=== PATIENT | female | born 1935 | race Caucasian/White ===

== ENCOUNTER → 2018-04-12 | Outpatient (CLI) | payer MEDICARE, OTHER ==
--- NOTE | 2018-04-12 15:39 | RAD ---
Bilateral lower extremity arterial ultrasound History: Claudication worse of the left leg, history of hypertension, previous smoker Findings: Multiple grayscale, color, and duplex spectral analysis sonographic images were acquired of the lower extremity arteries bilaterally. There are no previous similar exams. There is moderate to severe scattered plaque bilaterally. There is velocity elevation of the left common femoral artery and proximal superficial femoral artery suggestive of underlying greater degree of stenoses. There are mostly biphasic waveforms bilaterally other than monophasic waveform of the left profunda femoris artery. Velocities in cm/sec: RIGHT Common femoral artery up to 388 Profunda femoris artery 99 Proximal SFA 164 Mid SFA 138 Distal SFA 108 Popliteal artery 95 Peroneal artery 55 Dorsalis pedis artery 93 Posterior tibial artery 39 Anterior tibial artery 76 LEFT: Common femoral artery 190 Profunda femoris artery 42 Proximal SFA up to 282 Mid SFA 75 Distal SFA 53 Popliteal artery 41 Peroneal artery 28 Dorsalis pedis artery 32 Posterior tibial artery 23 Anterior tibial artery 41 Impression: 1. There is diffuse plaque. There is greater degree of velocity elevation left common femoral artery and the proximal superficial femoral artery suggestive of underlying stenoses. Electronically signed by: Yan Hilliard MD (04/12/2018 3:35 PM) [id number]
== END | disposition home or self-care (01) ==
LOC: US 09:59
PROVIDERS: ATTEND Physician Assistant Medical
DX: I70.293 Other atherosclerosis of native arteries of extremities, bilateral legs (principal); I10 Essential (primary) hypertension; Z87.891 Personal history of nicotine dependence
CPT/HCPCS: 93925

== ENCOUNTER → 2018-05-04 | Outpatient (CLI) | payer MEDICARE, OTHER ==
--- NOTE | 2018-05-04 16:02 | RAD ---
MR#: [id number] Date of Study: 05/04/2018 Ordering Physician: MARILYNN PARK, Referring Physician: MARILYNN PARK, Tech: Stephany Allen RDMS, RVT, RTR APPROVED REPORT Patient Location: OUT-PATIENT Indications Rest Pain: Grayscale images of the right common femoral artery revealed moderate diffuse calcified plaque. Spect ral waveforms are noted to be monophasic with peak systolic velocities of 316 cm/s which is twice her previous arterial duplex value of 150 cm/s. Blunted waveforms are noted in the SFA and below-knee ve ssels. There are mostly monophasic waveforms suggestive of more proximal disease with diminished velo cities throughout the popliteal and lower extremity arterial tree. Critical Notification Critical Value: No <Conclusion> 1. Probable right [employer] greater than 50% stenosis with monophasic waveforms in the right lower extremit y and diminished velocities compared to arterial duplex dated 04/12/2018. Signed by : Usama Moya, Electronically Approved : 05/04/2018 16:01:17
--- NOTE | 2018-05-04 16:03 | RAD ---
MR#: [id number] Date of Study: 05/04/2018 Ordering Physician: MARILYNN PARK, Referring Physician: MARILYNN PARK, Tech: Stephany Allen RDMS, RVT, RTR APPROVED REPORT Patient Location : OUT-PATIENT Indications Varicose Veins Grayscale images of the bilateral greater and lesser saphenous veins on limited images do not show an y evidence of thrombus. Spectral waveforms and color Doppler do not reveal any significant evidence o f reflux. Critical Notification Critical Value: No <Conclusion> Negative for reflux in the bilateral greater and lesser saphenous veins Signed by : Usama Moya, Electronically Approved : 05/04/2018 16:02:50
== END | disposition home or self-care (01) ==
LOC: US 12:14
PROVIDERS: ATTEND Internal Medicine Cardiovascular Disease
DX: I70.291 Other atherosclerosis of native arteries of extremities, right leg (principal); I10 Essential (primary) hypertension; Z87.891 Personal history of nicotine dependence
CPT/HCPCS: 93926; 93970

== ENCOUNTER 2018-05-25 11:13 | Inpatient (IN) | payer MEDICARE, OTHER ==
[~2018-05-25] VITALS: Ht 149.9 cm; Wt 47.4 kg
[2018-05-25] MEDS ORDERED: IV NORMAL SALINE 1,000ML 1,000 ML IV SCH (11:26)
--- NOTE | 2018-05-25 11:38 | PHYS DOC ---
Past History Past Medical History: High Cholesterol, Hypertension, Hypothyroid Additional Past Medical Histor: PVD Past Surgical History: Angioplasty Smoking: Non-smoker Adult General Chief Complaint Chief Complaint: MULTIPLE COMPLAINTS HPI HPI Patient is an 82-year-old female who presents to the emergency department for evaluation. She has a history of peripheral vascular disease, and last month underwent 2 separate procedures where she had angioplasty, without stenting, of her lower extremities. She also reports that she underwent a diagnostic coronary angiogram without intervention. She did develop complications from bleeding at the site of her right wrist, and was in the hospital for a few days. She spent a total of 7 days in the hospital. She was also started on Norvasc for hypertension, but developed a red rash to the medication and wound up back in the hospital again. This medication was stopped and she was treated with medications for a possible allergic reaction. She was treated with Solu- Medrol in the hospital and has been on a steroid taper for the past week, and was supposed end today but she did not take her dose today. The patient presents to the emergency department today for generalized weakness and fatigue. Her daughter states that she has lost about 7 pounds over the past week , although she has been eating. She has had some intermittent flank pain bilaterally, more on the left side recently. She denies any back pain at the current time. She has not had any abdominal pain. She denies any dizziness or lightheadedness, or headache. She has had some occasional blurred vision at times but reports her vision is normal now. The patient's daughter states that she was too weak to get into bed this morning and fell face first into her bed to try and get into bed. The patient is able to move all extremities and is oriented to person place and time at this point. She has not had any black or bloody stools. She is not on any new anticoagulants. There are no alleviating, or exacerbating factors to her symptoms. Review of Systems Review of Systems Constitutional: Denies fever or chills [] Eyes: Denies ocular discharge, current vision changes, redness, or eye pain [] HENT: Denies nasal congestion or sore throat [] Respiratory: Denies cough or shortness of breath [] Cardiovascular: The patient denies any shortness of breath, chest pain, palpitations, or orthopnea [] GI: Denies abdominal pain, nausea, vomiting, bloody stools or diarrhea [] : Denies dysuria or hematuria [] Musculoskeletal: Patient has had some left flank/back pain Denies myalgias or joint pain [] Integument: Denies rash or skin lesions [] Neurologic: Denies headache, focal weakness or sensory changes [] Endocrine: Denies polyuria or polydipsia [] All other systems were reviewed and found to be within normal limits, except as documented in this note. Current Medications Current Medications Current Medications Medications (Trade) Dose Ordered Sig/Aylin Start Time Stop Time Status Last Admin Dose Admin Sodium Chloride 1,000 ml @ 1,000 mls/hr Q1H 05/25/18 11:26 05/25/18 12:25 UNV Physical Exam Physical Exam PHYSICAL EXAM: CONSTITUTIONAL: Well developed, well nourished HEAD: normocephalic, atraumatic EENT: PERRL, EOMI. Conjunctivae appear mildly pale, sclerae non-icteric; mildly dry mucous membranes. NECK: Supple, non-tender; no meningismus. LUNGS: Lungs CTA, breathing even and unlabored. Normal air movement. HEART: Regular tachycardia, no murmur CHEST: No deformity; non-tender ABDOMEN: The abdomen is soft, and non-tender, no masses or bruits. EXTREM: Normal ROM; no deformity, no calf tenderness. Normal pulses palpable in all extremities. There is no pedal edema. SKIN: No rash; no diaphoresis NEURO: Alert; normal speech and cognition; CN's grossly intact; strength grossly intact without focal deficit. BACK: There is mild bilateral CVA TTP.There is no bony tenderness to palpation of the thoracic or lumbar spine. EKG EKG [Normal sinus rhythm at a rate of 102 beats for minute, right axis deviation, nonspecific intraventricular conduction delay, poor anterior R-wave progression without acute ischemic ST/T changes.] Radiology/Procedures Radiology/Procedures [PROCEDURE: CT HEAD WO CONTRAST CT HEAD INDICATION: WEAKNESS, altered mental status COMPARISON: None Available. TECHNIQUE: 5 mm contiguous axial images were obtained from the skull base to the vertex in both bone and soft tissue algorithm. Exposure: One or more of the following individualized dose reduction techniques were utilized for this examination: 1. Automated exposure control 2. Adjustment of the mA and/or kV according to patient size 3. Use of iterative reconstruction technique FINDINGS: Mild bilateral periventricular white matter hypodensities likely chronic small vessel ischemic disease. No evidence of acute intracranial hemorrhage. No extra-axial fluid collections. Calcifications identified in the basal ganglia. No mass effect or midline shift. Ventricular size is appropriate. Basal cisterns are patent. No fractures identified.Garcia-white differentiation is preserved.Globes and orbits are within normal limits. Paranasal sinuses and mastoid air cells are clear. IMPRESSION: No acute intracranial findings. ] PROCEDURE: PORTABLE CHEST 1V EXAM: Chest, single view. HISTORY: Weakness. COMPARISON: None. FINDINGS: A frontal view of the chest is obtained. There is no infiltrate, pleural effusion or pneumothorax. The heart is normal in size. IMPRESSION: No acute pulmonary finding. Course & Med Decision Making Course & Med Decision Making Pertinent Labs and Imaging studies reviewed. (See chart for details) [The patient's condition remained stable. Her renal function has worsened slightly since hospital discharge, when it was 1.0, it is 1.4 today. Her sodium was also dropped from 131-129. I discussed the case with the hospitalist, who will admit the patient further evaluation and monitoring, and rehydration. ] Dragon Disclaimer Dragon Disclaimer This electronic medical record was generated, in whole or in part, using a voice recognition dictation system. Departure Departure: Impression: Primary Impression: Dehydration Additional Impressions: Weakness Renal insufficiency Hyponatremia Disposition: ADMITTED INPATIENT Admitting Physician: Other (Marciano) Condition: STABLE Referrals: ALENA HANEY (PCP) Problem Qualifiers HUBERT WANG MD May 25, 2018 11:38
--- NOTE | 2018-05-25 11:57 | RAD ---
CT HEAD INDICATION: WEAKNESS, altered mental status COMPARISON: None Available. TECHNIQUE: 5 mm contiguous axial images were obtained from the skull base to the vertex in both bone and soft tissue algorithm. Exposure: One or more of the following individualized dose reduction techniques were utilized for this examination: 1. Automated exposure control 2. Adjustment of the mA and/or kV according to patient size 3. Use of iterative reconstruction technique FINDINGS: Mild bilateral periventricular white matter hypodensities likely chronic small vessel ischemic disease. No evidence of acute intracranial hemorrhage. No extra-axial fluid collections. Calcifications identified in the basal ganglia. No mass effect or midline shift. Ventricular size is appropriate. Basal cisterns are patent. No fractures identified.Garcia-white differentiation is preserved.Globes and orbits are within normal limits. Paranasal sinuses and mastoid air cells are clear. IMPRESSION: No acute intracranial findings. Electronically signed by: Clay Martinez MD (05/25/2018 11:54 AM) [id number]
[2018-05-25 12:11] LABS: BACTERIA,URINE FEW /HPF (0-FEW); BILIRUBIN,URINE NEG (NEG); CLARITY,URINE CLEAR; COLOR,URINE YELLOW; GLUCOSE,URINE NEG (NEG); NITRITE,URINE NEG (NEG); RBC,URINE 0 /HPF (0-2); SQUAMOUS EPITHELIAL CELL,UR OCC /LPF; UROBILINOGEN,URINE 0.2 mg/dL (0.2 mg/dL)
[2018-05-25 12:15] LABS: BASO # 0.1 x10^3/uL (0.0-0.2); BASO % 0 % (0-3); EOS # 0.5 x10^3/uL (0.0-0.7); EOS % 2 % (0-3); HEMATOCRIT 45.5 % (36.0-47.0); HEMOGLOBIN 15.2 g/dL (12.0-15.5); LYMPH # 2.3 x10^3/uL (1.0-4.8); LYMPH % 10 % (24-48); MEAN CORPUSCULAR HEMOGLOBIN 30 pg (25-35); MEAN CORPUSCULAR HGB CONC 34 g/dL (31-37); MEAN CORPUSCULAR VOLUME 89 fL (79-100); MONO # 2.4 x10^3/uL (0.0-1.1); MONO % 11 % (0-9); NEUT # 17.1 x10^3uL (1.8-7.7); NEUT % 77 % (31-73); PLATELET COUNT 282 x10^3/uL (140-400); RED BLOOD COUNT 5.14 x10^6/uL (3.50-5.40); RED CELL DISTRIBUTION WIDTH 15.1 % (11.5-14.5); WHITE BLOOD COUNT 22.3 x10^3/uL (4.0-11.0)
--- NOTE | 2018-05-25 12:16 | RAD ---
EXAM: Chest, single view. HISTORY: Weakness. COMPARISON: None. FINDINGS: A frontal view of the chest is obtained. There is no infiltrate, pleural effusion or pneumothorax. The heart is normal in size. IMPRESSION: No acute pulmonary finding. Electronically signed by: Alexandria Terry MD (05/25/2018 12:12 PM) [place] [id number]
[2018-05-25 12:39] LABS: ALBUMIN 3.5 g/dL (3.4-5.0); CALCIUM 9.3 mg/dL (8.5-10.1); CREATININE 1.4 mg/dL (0.6-1.0); MAGNESIUM 2.1 mg/dL (1.8-2.4); POTASSIUM 3.5 mmol/L (3.5-5.1); TOTAL BILIRUBIN 0.8 mg/dL (0.2-1.0); TOTAL PROTEIN 6.9 g/dL (6.4-8.2)
[2018-05-25 12:53] LABS: % BANDS 2 % (0-9); % BASOS 0 % (0-3); % EOS 0 % (0-5); % LYMPHS 13 % (24-48); % MONOS 5 % (0-10); % SEGS 79 % (35-66)
[2018-05-25 12:54] LABS: PLT ESTIMATE ADEQUATE (ADEQUATE); TOXIC GRANULATION PRESENT
[2018-05-25] MEDS ORDERED: IV NORMAL SALINE 1,000ML 1,000 ML IV ONE (13:45)
[2018-05-25] MEDS ORDERED: cefTRIAXone IV Push 1 GM VIAL. IVP ONE (14:00)
[2018-05-25 14:28] VITALS: BP 181/74
[2018-05-25] MEDS ORDERED: PERP4TAB6 PO (15:36)
[2018-05-25] MEDS ORDERED: LEVO75TA5 PO (15:36)
[2018-05-25] MEDS ORDERED: TRIA1TAB5 PO (15:36)
[2018-05-25] MEDS ORDERED: ALPR0.5T PO (15:36)
[2018-05-25] MEDS ORDERED: AMIT25TA PO (15:36)
[2018-05-25] MEDS ORDERED: POTA10TA10 PO (15:36)
[2018-05-25] MEDS: IV NORMAL SALINE 1,000ML 1,000 ML IV SCH (16:45)
[2018-05-25] MEDS: PERPHENAZINE 2 MG TABLET PO SCH (20:00)
[2018-05-25 20:16] VITALS: BP 127/68
[2018-05-25] MEDS: AMITRIPTYLINE HCL 25 MG TABLET PO SCH (20:16)
[2018-05-25] MEDS: ALPRAZolam 0.5 MG TABLET PO SCH (20:16)
[2018-05-25 23:31] VITALS: BP 117/61
[2018-05-26] MEDS: IV NORMAL SALINE 1,000ML 1,000 ML IV SCH ×2 (01:35→08:30)
[2018-05-26 05:37] VITALS: BP 131/65
[2018-05-26] MEDS: LEVOTHYROXINE 75 MCG TABLET PO SCH (06:01)
[2018-05-26 06:23] LABS: BASO # 0.1 x10^3/uL (0.0-0.2); BASO % 0 % (0-3); EOS # 0.7 x10^3/uL (0.0-0.7); EOS % 5 % (0-3); HEMATOCRIT 34.2 % (36.0-47.0); HEMOGLOBIN 11.5 g/dL (12.0-15.5); LYMPH # 1.7 x10^3/uL (1.0-4.8); LYMPH % 11 % (24-48); MEAN CORPUSCULAR HEMOGLOBIN 30 pg (25-35); MEAN CORPUSCULAR HGB CONC 34 g/dL (31-37); MEAN CORPUSCULAR VOLUME 89 fL (79-100); MONO # 1.5 x10^3/uL (0.0-1.1); MONO % 10 % (0-9); NEUT % 74 % (31-73); PLATELET COUNT 202 x10^3/uL (140-400); RED BLOOD COUNT 3.84 x10^6/uL (3.50-5.40); RED CELL DISTRIBUTION WIDTH 15.1 % (11.5-14.5); WHITE BLOOD COUNT 14.9 x10^3/uL (4.0-11.0)
[2018-05-26 06:39] LABS: ALBUMIN 2.2 g/dL (3.4-5.0); ALBUMIN/GLOBULIN RATIO 0.8 (1.0-1.7); CALCIUM 7.9 mg/dL (8.5-10.1); GFR 53.1; TOTAL BILIRUBIN 0.4 mg/dL (0.2-1.0); TOTAL PROTEIN 4.9 g/dL (6.4-8.2)
[2018-05-26 06:40] LABS: POTASSIUM 2.9 mmol/L (3.5-5.1)
--- NOTE | 2018-05-26 07:46 | EKG ---
[address] [address] Test Date: 2018-05-25 Test Time: 12:13:40 Pat Name: JUAN DANIEL THOMAS Department: Room: Gender: F Sample Clerk: : 1935 Requested By: HUBERT WANG Order Number: [id number] Reading MD: Measurements Intervals [place] Rate: 102 P: 121 RI: 150 QRS: 174 QRSD: 122 T: 80 QT: 368 QTc: 484 Interpretive Statements SUPRAVENTRICULAR RHYTHM LEFT ATRIAL ABNORMALITY ABNORMAL RIGHT AXIS DEVIATION QRS(T) CONTOUR ABNORMALITY CONSIDER ANTEROSEPTAL MYOCARDIAL DAMAGE CONSISTENT WITH HIGH LATERAL INFARCT AGE UNDETERMINED ABNORMAL ECG RI6.01 Unconfirmed report No previous ECG available for comparison
[2018-05-26] MEDS: POTASSIUM CHLORIDE 10 MEQ TABLET.ER. PO SCH (08:27)
[2018-05-26] MEDS ORDERED: DEXTROSE 50% 25 GM / 50ML DISP.SYRIN. IV PRN (09:00)
--- NOTE | 2018-05-26 09:12 | HP ---
ADMIT DATE: 05/25/2018 HISTORY OF PRESENT ILLNESS: The patient is an 82-year-old female patient who came to her primary care physician with a complaint of generalized weakness and fatigue. Her daughter stated that she lost about 7 pounds over the past week, although she has been eating. She has had some intermittent flank pain bilaterally, more in the left side. She denied any back pain. She has not had any abdominal pain. She denied any dizziness, lightheadedness or headache. Yesterday, on the day of admission, she was too weak to get into her bed and fell face first into her bed to try and get into bed. She was able to move all extremities and oriented to person, place and time at this time. She apparently has fallen on 05/18/2018 and she hit her head at that time, although she has not told anybody. She was admitted to [facility] on 05/12/2018 and was discharged on 05/16/2018. At that time, she underwent a percutaneous transluminal angioplasty to her left common femoral artery and right common femoral artery with improvement of symptoms postprocedure. She underwent also a left heart catheterization, which showed minimal coronary artery disease and apparently, she has nonischemic cardiomyopathy. As her blood pressure was not well controlled, she was started on Norvasc and apparently developed an allergic reaction that took more than 48 hours to resolve and was treated with IV steroids, Benadryl and H2 blockers. She apparently was discharged on a tapering course of steroids in the form of prednisone 10 mg. She took 36 tablets over the last 9 days. She apparently was seen at her primary care physician's office and was referred to the Emergency Room where she was extensively investigated. She has had lab work which showed that she has marked leukocytosis with a white cell count 22,300. Her chemistry showed that she also has hyponatremia and dehydration with a BUN of 28, creatinine 1.4. Her urinalysis showed the urine was yellow with a pH of 7. There was moderate amount of leukocyte esterase and 5-10 wbc's; however, her chest x-ray was unremarkable and was admitted. She was given 1 gram of IV Rocephin, was admitted with dehydration, generalized weakness, hyponatremia and acute kidney injury. PAST MEDICAL HISTORY: Significant for hypertension, hyperlipidemia, peripheral arterial disease. She apparently has chronic bronchitis, gastroesophageal reflux disease, anxiety and depression as well as hypothyroidism, Raynaud's phenomenon, and a history of cancer. PAST SURGICAL HISTORY: Significant for left heart catheterization, bilateral femoral angioplasty, tonsillectomy, bilateral cataract extraction, total abdominal hysterectomy, bilateral salpingo-oophorectomy. ALLERGIES: She apparently IS ALLERGIC TO SULFA, AMLODIPINE AND LISINOPRIL. MEDICATIONS: She is currently on following medications: She is on amitriptyline 25 mg twice a day, perphenazine 4 mg twice a day, alprazolam 0.5 mg at bedtime, potassium chloride 30 mEq daily. She is on triamterene/hydrochlorothiazide 75/50 one tablet once a day, levothyroxine sodium 75 mcg once a day. FAMILY HISTORY: She has one brother, younger, is still alive at the age of 78 and is known to have type 2 diabetes and congestive heart failure. Her father at age of 90 because of congestive heart failure. Mother at the age of 67 because of dementia and cancer. SOCIAL HISTORY: She is , lives alone. She has one daughter and one son. She is an ex-smoker, quit 50 years ago. She does not drink alcohol or recreational drugs. 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 REVIEW OF SYSTEMS: The patient has had bilateral cataract extraction, but denied any glaucoma or macular degeneration. Denied any earache, tinnitus or sensorineural deafness. Denied any nosebleeds, stuffy nose or postnasal drip. Denied any sore throat, sore tongue, toothache, hoarseness of voice or difficulty swallowing. Denied any nausea, vomiting, diarrhea or constipation. Denied any hematemesis, melena or hematochezia. Denied any dysuria, frequency or hematuria. Denied any chest pain, shortness of breath, orthopnea, paroxysmal nocturnal dyspnea. Denied any cough, phlegm or hemoptysis. PHYSICAL EXAMINATION: GENERAL: On arrival to the Emergency Room, she looked well and was clearly in no apparent respiratory distress, pale, but no jaundice, cyanosis, lymphadenopathy or thyromegaly. No jugular venous distention. No limb edema. VITAL SIGNS: Her heart rate was 115, blood pressure was 167/71, her temperature was 97.6, respiratory rate 20, and oxygen saturation was 98% on room air. HEENT: Showed she is normocephalic, atraumatic. NECK: Supple. HEART: Showed normal first and second heart sounds with no gallop, rub or murmur. CHEST: Clear to auscultation. No crepitation or rhonchi. ABDOMEN: Distended, soft, nontender. No guarding or rigidity. No organomegaly. Hernial orifice intact. Bowel sounds normal. NEUROLOGIC: She is awake, alert, responding appropriately. Her cranial nerves intact. She moves extremities without difficulty. She apparently ambulates without assistance or assistive devices. DIAGNOSTIC DATA: While in the Emergency Room, she had had an EKG, which showed that her heart rate was 102 beats per minute with right axis deviation, nonspecific intraventricular conduction delay, poor R-wave progression, without acute ischemia and no ST-T changes. RADIOLOGICAL DATA: CT scan of the head showed that she has mild bilateral periventricular white matter hypodensities, likely chronic small vessel ischemic disease, no evidence of acute intracranial hemorrhage, no extraaxial fluid collection, calcification identified in the basal ganglia. There were no masses, no mass effect or midline shift, ventricular size is appropriate. Basal cisterns are patent. No fracture identified. The ledbetter white matter differentiation is preserved. Globes and orbits are within normal limits. Paranasal sinuses and mastoid air cells are clear. The x-ray of the chest, frontal view of the chest was obtained and showed there is no infiltrate, pleural effusion or pneumothorax. The heart size is normal. LABORATORY DATA: Her lab work in the Emergency Room showed her white cell count to be 22,300, hemoglobin 15, hematocrit 45, MCV 89 and platelet count 282,000 with normal manual differential. Her chemistry showed a serum sodium of 129, potassium 3.5, chloride 92, bicarbonate 24, anion gap of 13, BUN 28, creatinine 1.4, estimated GFR was 36 mL per minute. Her glucose 137, calcium was 9.3, magnesium 2.1. Total bilirubin, AST, ALT, alkaline phosphatase were normal. Her total protein was 6.9, albumin 3.5. Serum lipase was 187. Her prothrombin time was 9.5, INR of 0.9, aPTT was 22. Urinalysis showed the urine was yellow, clear with a pH of 7, specific gravity of 1.015. There was a trace of protein. The urine was negative for glucose, ketones, blood, nitrite and bilirubin. There was moderate amount of leukocyte esterase, no rbc's, 5-10 wbc's and very few bacteria. ASSESSMENT AND PLAN: The patient was basically admitted with dehydration, generalized weakness, renal insufficiency, hyponatremia, questionable urinary tract infection. She was given IV fluid and IV Rocephin after obtaining appropriate culture. She apparently received her last dose of steroids yesterday and her leukocytosis likely at least in part caused by the fact that she was on a large amount of steroids. We will continue to rehydrate the patient and replenish her potassium and sodium. We will continue with IV antibiotic. Await the result of the culture and sensitivity. I also will check her orthostatics and also order physical and occupational therapy. KRIS STOVALL MD DR: LIBRA/france JOB#: [id number] / [id number]
--- NOTE | 2018-05-26 09:33 | RAD ---
Chest, 2 views, 05/26/2018: HISTORY: Weakness, elevated white blood cell count Comparison is made to a study from 05/25/2018. The heart size and pulmonary vascularity are normal. There is calcific plaquing of the aorta. A trace amount of bilateral pleural fluid is present. No pulmonary consolidation is seen. Several air-fluid levels are noted in the upper abdomen, raising possibility of a mild ileus. IMPRESSION: 1. Tiny bilateral pleural effusions, perhaps related to an intra-abdominal process considering the presence of scattered air-fluid levels in the abdomen. 2. No acute pulmonary infiltrates. Electronically signed by: Agusto Hill MD (05/26/2018 9:29 AM) [facility]
[2018-05-26 10:53] VITALS: BP 127/68
[2018-05-26] MEDS: TRIAMTERENE/HCTZ 37.5/25MG TABLET. PO SCH (11:01)
[2018-05-26] MEDS: POTASSIUM CL 40MEQ IN 0.9%NACL 1,000 ML IV SCH ×2 (11:01→20:02)
[2018-05-26] MEDS: POTASSIUM CHLORIDE 20 MEQ/15 ML ORAL LIQUID. FT SCH ×2 (12:07→19:29)
[2018-05-26] MEDS: PERPHENAZINE 2 MG TABLET PO SCH ×2 (12:10→20:00)
[2018-05-26] MEDS: AMITRIPTYLINE HCL 25 MG TABLET PO SCH ×2 (12:10→20:02)
--- NOTE | 2018-05-26 12:53 | RAD ---
Examination: CT of the abdomen pelvis without contrast HISTORY: History of left-sided flank pain, air-fluid levels on x-ray COMPARISON: None available Technique: Axial CT images of the abdomen pelvis were performed without contrast. Coronal and sagittal reformats performed Exposure: One or more of the following individualized dose reduction techniques were utilized for this examination: 1. Automated exposure control 2. Adjustment of the mA and/or kV according to patient size 3. Use of iterative reconstruction technique FINDINGS: Trace bilateral pleural effusions. Minimal atelectasis right middle lobe of the lung. No evidence of free air identified in the abdomen. The evaluation of the solid organs is limited due to lack of IV contrast. The evaluation of bowel is limited due to lack of oral contrast. The visualized noncontrasted liver, adrenals grossly appears unremarkable. Calcified granulomas identified in the spleen. Calcified gallstone identified within the mildly distended gallbladder. The visualized noncontrasted pancreas grossly appears unremarkable. The stomach is mildly distended. The small bowel is nondilated. Feces and gas noted in the colon. The appendix is normal. Few sigmoid colon diverticulosis. Urinary bladder is mildly distended. No evidence of intrarenal collecting system calculi or hydronephrosis. Moderate degenerative changes lumbar spine Severe aortic atherosclerosis. IMPRESSION: 1. Cholelithiasis. 2. Sigmoid colon diverticulosis. Electronically signed by: Clay Martinez MD (05/26/2018 12:50 PM) [id number]
[2018-05-26 14:39] VITALS: BP 151/72
[2018-05-26 19:33] VITALS: BP 147/77
[2018-05-26] MEDS: ALPRAZolam 0.5 MG TABLET PO SCH (20:01)
[2018-05-26 20:11] LABS: CALCIUM 8.1 mg/dL (8.5-10.1); CREATININE 0.8 mg/dL (0.6-1.0); GFR 68.7; POTASSIUM 4.4 mmol/L (3.5-5.1)
--- NOTE | 2018-05-26 20:25 | PN ---
DATE: 05/26/2018 SUBJECTIVE: The patient is resting, sitting up, eating her breakfast comfortably this morning. On questioning her, she denied any complaints and apparently had a good night sleep. The nursing staff did not voice any concern except that her potassium has dropped down from 3.5 to 2.9. PHYSICAL EXAMINATION: GENERAL: When I examined her, she looked well and was clearly in no apparent respiratory distress, slightly pale, no jaundice or cyanosis. No lymphadenopathy, no thyromegaly. No jugular venous distension. No lower limb edema. VITAL SIGNS: Her heart rate was 93, blood pressure was 131/65, temperature was 98.2, respiratory rate was 14 and oxygen saturation was 96% on room air. HEAD, EYES, EARS, NOSE AND THROAT: Showed normocephalic, atraumatic. NECK: Supple. HEART: Showed normal first and second heart sounds. No gallop, rub or murmur. CHEST: Clear to auscultation. No crepitation or rhonchi. ABDOMEN: Distended, soft, nontender. No guarding or rigidity. No organomegaly. Hernial orifice intact. Bowel sounds normal. NEUROLOGIC: She is awake, alert, responding appropriately. All cranial nerves intact. She moves extremities without difficulty. She ambulates without assistance or assistive devices. Her intake over the last 24 hours was , output was 800. LABORATORY DATA: This morning showed her white cell count is down to 14,900, hemoglobin 11.5, hematocrit 34, MCV 89 and platelet count 202,000 with normal manual differential. Her sed rate was 7 mm per hour. Her serum sodium is up to 135, potassium is 2.9. Her chloride was 103, bicarbonate 25, anion gap of 7, BUN 28, creatinine 1, estimated GFR was 53 mL per minute. Her glucose was 82, lactic acid 0.7, calcium was 7.9. Total bilirubin, AST, ALT, alkaline phosphatase were normal. Her C-reactive protein was 4.8 mg/dL. Total protein was 4.9, albumin was 2.2. Prothrombin time was 9.5, INR of 0.9, aPTT was 20. ASSESSMENT AND PLAN: In summary, this is an 82-year-old female patient who came in with dehydration, acute kidney injury, hyponatremia and generalized weakness, questionable urinary tract infection. She was definitely dehydrated and her leukocytosis is probably high in part because of steroids as well as disproportionately high BUN. My plan is to switch her IV fluid to normal saline with potassium. We will do Accu-Cheks before meals and at bedtime. Add magnesium to her lab work and hemoglobin A1c tomorrow. KRIS STOVALL MD DR: LIBRA/france JOB#: [id number] / [id number]
[2018-05-26 22:35] VITALS: BP 149/76
[2018-05-27 05:46] VITALS: BP 132/67
[2018-05-27 06:06] LABS: BASO # 0.1 x10^3/uL (0.0-0.2); BASO % 1 % (0-3); EOS # 0.7 x10^3/uL (0.0-0.7); EOS % 6 % (0-3); HEMATOCRIT 30.6 % (36.0-47.0); HEMOGLOBIN 10.3 g/dL (12.0-15.5); LYMPH # 1.2 x10^3/uL (1.0-4.8); LYMPH % 10 % (24-48); MEAN CORPUSCULAR HEMOGLOBIN 30 pg (25-35); MEAN CORPUSCULAR HGB CONC 34 g/dL (31-37); MEAN CORPUSCULAR VOLUME 89 fL (79-100); MONO # 1.4 x10^3/uL (0.0-1.1); MONO % 11 % (0-9); NEUT % 73 % (31-73); PLATELET COUNT 176 x10^3/uL (140-400); RED BLOOD COUNT 3.44 x10^6/uL (3.50-5.40); RED CELL DISTRIBUTION WIDTH 14.9 % (11.5-14.5); WHITE BLOOD COUNT 12.4 x10^3/uL (4.0-11.0)
[2018-05-27 06:17] LABS: CALCIUM 7.8 mg/dL (8.5-10.1); CREATININE 0.8 mg/dL (0.6-1.0); GFR 68.7; POTASSIUM 4.1 mmol/L (3.5-5.1)
[2018-05-27] MEDS: LEVOTHYROXINE 75 MCG TABLET PO SCH (06:24)
[2018-05-27] MEDS: POTASSIUM CHLORIDE 10 MEQ TABLET.ER. PO SCH (07:56)
[2018-05-27] MEDS ORDERED: MAGNESIUM SULFATE 2GM 50 ML IV ONE (08:00)
[2018-05-27] MEDS: TRIAMTERENE/HCTZ 37.5/25MG TABLET. PO SCH (08:45)
[2018-05-27] MEDS ORDERED: LACTOBACILLUS RHAMNOSUS GG 1 CAPSULE. PO SCH (09:00)
[2018-05-27] MEDS ORDERED: cefTRIAXone IV Push 1 GM VIAL. IVP SCH (09:00)
[2018-05-27] MEDS ORDERED: TRIA1TAB3 PO (09:09)
[2018-05-27] MEDS ORDERED: CEFP200T PO (09:11)
--- NOTE | 2018-05-27 12:58 | DS ---
DATE OF DISCHARGE: HISTORY OF PRESENT ILLNESS: The patient is an 82-year-old female patient who is seen in the Emergency Room with a complaint of generalized weakness and fatigue. Her daughter stated that she has lost about 7 pounds over the last week, although she has been eating. She has had some intermittent flank pain bilaterally, more on the left side. Denied any back pain. She has not had any abdominal pain. Denied any dizziness, lightheadedness, or headache. She was too weak to get into her bed and fell face first into her bed to try and get into bed; however, she was able to move her extremities and oriented to person, place and time. She was evaluated in the Emergency Room, who was found to have leukocytosis. Her white cell count was high at 22,000. She also was markedly hypokalemic. She was also dehydrated with hyponatremia, hypokalemia, elevated BUN and creatinine, but the BUN was raised because she was on steroids that might explain also why her white cell count was elevated. She has no fever and her urinalysis showed that the nitrite was negative and there was moderate leukocyte esterase and only 5-10 wbc's, very few bacteria. Her urine culture so far has been negative. We did start her on IV fluid and her serum sodium, potassium and magnesium have all been replenished. Her white cell count came steadily down from 22,000 to 12,400. The patient has been up and about without any difficulty. She continued to complain of left flank pain, however, we did a CT scan of the abdomen and pelvis without contrast that was unremarkable, did not show any stones in her kidneys, nor did it show any other abnormalities: PHYSICAL EXAMINATION: GENERAL: When I examined her this morning, she looked well and was clearly in no apparent respiratory distress. No pallor, jaundice, cyanosis, or thyromegaly. No jugular venous distension. No limb edema. VITAL SIGNS: Her heart rate was 100, blood pressure was 132/67, temperature was 98.5, respiratory rate was 18 and oxygen saturation was 94%. HEAD, EYES, EARS, NOSE AND THROAT: Normocephalic, atraumatic. NECK: Supple. HEART: Showed normal first and second heart sounds. No gallop, rub or murmur. CHEST: Clear to auscultation. No crepitation or rhonchi. ABDOMEN: Distended, soft, nontender. No guarding or rigidity. No organomegaly. Hernial orifice intact. Bowel sounds normal. NEUROLOGIC: She was awake, alert, responding appropriately. Cranial nerves intact. EXTREMITIES: She moves extremities without difficulty. She ambulates without assistance or assistive devices. LABORATORY DATA: Her lab work this morning showed her white cell count is down to 12,400, hemoglobin 10.3, hematocrit 30, MCV 89 and platelet count of 176,000. Her prothrombin time was 9.5, INR of 0.9, aPTT was 22. Her chemistry this morning showed a serum sodium 134, potassium 4.1, chloride 105, bicarbonate 24, anion gap of 5, BUN 11, creatinine 0.8, estimated GFR was 68 mL per minute. Her glucose was 95, calcium was 7.8, magnesium was 1.4. She did receive 2 grams of mag. DISCHARGE MEDICATIONS: The patient was discharged home to continue on Vantin 200 mg twice a day for 5 more days, magnesium oxide 400 mg twice a day. I did cut down her triamterene/ hydrochlorothiazide to 37.5/25 one tablet daily. Continue with her alprazolam 0.5 mg at bedtime, amitriptyline 25 mg twice a day, levothyroxine sodium 75 mcg daily, perphenazine 4 mg twice a day and potassium chloride 30 mEq p.o. daily. FINAL DISCHARGE DIAGNOSES: 1. Dehydration with acute kidney injury. 2. Hyponatremia. 3. Hypokalemia. 4. Hypomagnesemia, all corrected. 5. Questionable urinary tract infection. So far, her urine culture is negative. She was treated empirically with IV Rocephin and was discharged home on Vantin 200 mg twice a day. She has marked leukocytosis that seems at least in part due to high dose steroids that she was given for allergic reaction to amlodipine and lisinopril. Other medical problems include peripheral vascular disease, status post revascularization of her right and left common femoral arteries. KRIS STOVALL MD DR: LIBRA/france JOB#: [id number] / [id number]
[2018-05-28 05:40] LABS: HEMOGLOBIN A1C 4.7 % (4.8-5.6)
== END 2018-05-27 10:39 | disposition home or self-care (01) | DRG 871 ==
LOC: ER 11:13 → 1 SOUTH 14:17
PROVIDERS: ADMIT Internal Medicine; ATTEND Internal Medicine
DX: A41.9 Sepsis, unspecified organism (principal); N17.0 Acute kidney failure with tubular necrosis; E87.1 Hypo-osmolality and hyponatremia; N39.0 Urinary tract infection, site not specified; D72.829 Elevated white blood cell count, unspecified; E03.9 Hypothyroidism, unspecified; E78.5 Hyperlipidemia, unspecified; E83.42 Hypomagnesemia; E86.0 Dehydration; E87.6 Hypokalemia; I10 Essential (primary) hypertension; I73.00 Raynaud's syndrome without gangrene; J42 Unspecified chronic bronchitis; K21.9 Gastro-esophageal reflux disease without esophagitis; T38.0X5A Adverse effect of glucocorticoids and synthetic analogues, initial encounter; F32.9 Major depressive disorder, single episode, unspecified; F41.9 Anxiety disorder, unspecified; T46.1X5A Adverse effect of calcium-channel blockers, initial encounter; Z82.49 Family history of ischemic heart disease and other diseases of the circulatory system; Z87.891 Personal history of nicotine dependence; Z90.710 Acquired absence of both cervix and uterus; Z98.41 Cataract extraction status, right eye; Z98.42 Cataract extraction status, left eye; Z83.3 Family history of diabetes mellitus; Z79.899 Other long term (current) drug therapy
CPT/HCPCS: 36415; 70450; 71045; 71046; 74176; 80048; 80053; 80061; 81001; 82553; 82947; 83036; 83605; 83690; 83735; 83880; 84443; 84484; 85007; 85025; 85610; 85651; 85730; 86140; 87086; 93005; 96360; 96361; J0696; J3475; Q0175; 99285-25; J7030

== ENCOUNTER → 2018-07-20 | Outpatient (CLI) | payer MEDICARE, OTHER ==
[~2018-07-20] MED LIST: ALPR0.5T PO; AMIT25TA PO; CEFP200T PO; LEVO75TA5 PO; PERP4TAB6 PO; POTA10TA10 PO; TRIA1TAB3 PO; TRIA1TAB5 PO
--- NOTE | 2018-07-21 14:04 | RAD ---
Examination: CHEST PA LATERAL History: dyspnea Comparison/Correlation: 05/26/2018 two-view chest x-ray exam Findings: Frontal and lateral views of chest were obtained. Heart size and pulmonary vasculature are normal. No infiltrate or pleural effusion. Calcified granulomas are present. Scoliosis of the spine is noted. Calcific involvement of the abdominal aorta is seen. Impression: No infiltrate. Electronically signed by: Kel Sutton MD (07/21/2018 2:01 PM) [facility] [place]
== END | disposition home or self-care (01) ==
LOC: PMG 14:21
PROVIDERS: ATTEND Physician Assistant
DX: J84.10 Pulmonary fibrosis, unspecified (principal); M41.84 Other forms of scoliosis, thoracic region; Z87.891 Personal history of nicotine dependence
CPT/HCPCS: 71046

== ENCOUNTER 2018-11-01 13:48 | Emergency (ER) | payer MEDICARE, OTHER ==
[~2018-11-01] VITALS: Ht 149.9 cm; Wt 48.0 kg
[2018-11-01] MEDS ORDERED: IPRATRPIUM/ALBUTEROL 0.5/2.5MG 3 ML NEBU. NEB ONE (14:15)
[2018-11-01 14:29] LABS: BASO # 0.1 x10^3/uL (0.0-0.2); BASO % 0 % (0-3); EOS # 0.1 x10^3/uL (0.0-0.7); EOS % 1 % (0-3); HEMATOCRIT 38.4 % (36.0-47.0); HEMOGLOBIN 12.8 g/dL (12.0-15.5); LYMPH # 1.2 x10^3/uL (1.0-4.8); LYMPH % 9 % (24-48); MEAN CORPUSCULAR HEMOGLOBIN 30 pg (25-35); MEAN CORPUSCULAR HGB CONC 33 g/dL (31-37); MEAN CORPUSCULAR VOLUME 88 fL (79-100); MONO # 2.1 x10^3/uL (0.0-1.1); MONO % 16 % (0-9); NEUT # 10.2 x10^3uL (1.8-7.7); NEUT % 75 % (31-73); PLATELET COUNT 273 x10^3/uL (140-400); RED BLOOD COUNT 4.34 x10^6/uL (3.50-5.40); RED CELL DISTRIBUTION WIDTH 14.5 % (11.5-14.5); WHITE BLOOD COUNT 13.6 x10^3/uL (4.0-11.0)
[2018-11-01 14:46] LABS: ALBUMIN 3.4 g/dL (3.4-5.0); ALBUMIN/GLOBULIN RATIO 0.7 (1.0-1.7); CALCIUM 9.4 mg/dL (8.5-10.1); CREATININE 1.4 mg/dL (0.6-1.0); POTASSIUM 3.7 mmol/L (3.5-5.1); TOTAL BILIRUBIN 0.7 mg/dL (0.2-1.0); TOTAL PROTEIN 8.3 g/dL (6.4-8.2)
--- NOTE | 2018-11-01 15:00 | RAD ---
EXAM: Chest, 2 views. HISTORY: Cough. COMPARISON: 07/20/2018 FINDINGS: 2 views of the chest are obtained. There is no infiltrate, pleural effusion or pneumothorax. The heart is normal in size. There is callus formation surrounding anterior lateral fifth and sixth rib fractures. There are calcified granulomas. IMPRESSION: 1. No acute pulmonary finding. 2. Suspected healing or healed anterolateral right fifth and sixth rib fractures. Electronically signed by: Alexandria Terry MD (11/01/2018 2:56 PM) [place] [id number]
--- NOTE | 2018-11-01 15:05 | PHYS DOC ---
Past History Past Medical History: High Cholesterol, Hypertension, Hypothyroid Additional Past Medical Histor: PVD Past Surgical History: Hysterectomy, Other Smoking: Non-smoker Alcohol Use: None Drug Use: None Adult General Chief Complaint Chief Complaint: COUGH HPI HPI Patient is a 82 year old female who presents with thinning of cough since this morning. Patient states he woke up around 4 AM nonproductive cough and nasal congestion without fever and chills, chest pain, nausea and vomiting, diarrhea and constipation. Patient complaining of dizziness while she is a standing up and on her way to come to the hospital. Review of Systems Review of Systems Constitutional: Denies fever or chills [] Eyes: Denies change in visual acuity, redness, or eye pain [] HENT: Denies nasal congestion or sore throat [] Respiratory: Reports cough but denies shortness of breath Cardiovascular: No additional information not addressed in HPI [] GI: Denies abdominal pain, nausea, vomiting, bloody stools or diarrhea [] : Denies dysuria or hematuria [] Musculoskeletal: Denies back pain or joint pain [] Integument: Denies rash or skin lesions [] Neurologic: Denies headache, focal weakness or sensory changes [] Endocrine: Denies polyuria or polydipsia [] All other systems were reviewed and found to be within normal limits, except as documented in this note. Current Medications Current Medications Current Medications Medications (Trade) Dose Ordered Sig/Aylin Start Time Stop Time Status Last Admin Dose Admin Albuterol/ Ipratropium (Duoneb) 3 ml 1X ONCE 11/01/18 14:15 11/01/18 14:17 DC 11/01/18 14:16 3 ML Allergies Allergies Allergies Coded Allergies Type Severity Reaction Last Updated Verified Sulfa (Sulfonamide Antibiotics) Allergy Intermediate 11/01/18 Yes amlodipine Allergy Intermediate Rash 11/01/18 Yes clindamycin Allergy Intermediate 11/01/18 Yes Physical Exam Physical Exam Constitutional: Well developed, well nourished, mild distress, non-toxic appearance. [] HENT: Normocephalic, atraumatic, bilateral external ears normal, oropharynx moist, no oral exudates, nose normal. [] Eyes: PERRLA, EOMI, conjunctiva normal, no discharge. [] Neck: Normal range of motion, no tenderness, supple, no stridor. [] Cardiovascular: Tachycardia, no murmur [] Lungs & Thorax: Bilateral breath sounds clear to auscultation [] Abdomen: Bowel sounds normal, soft, no tenderness, no masses, no pulsatile masses. [] Skin: Warm, dry, no erythema, no rash. [] Back: No tenderness, no CVA tenderness. [] Extremities: No tenderness, no cyanosis, no clubbing, ROM intact, no edema. [] Neurologic: Alert and oriented X 3, normal motor function, normal sensory function, no focal deficits noted. [] Psychologic: Affect normal, judgement normal, mood normal. [] Current Patient Data Vital Signs Vital Signs Date Time Temp Pulse Resp B/P (MAP) Pulse Ox O2 Delivery O2 Flow Rate FiO2 11/01/18 14:18 98 Room Air 11/01/18 13:49 98.5 111 18 Lab Results Laboratory Tests Test 11/01/18 14:11 White Blood Count 13.6 x10^3/uL (4.0-11.0) H Red Blood Count 4.34 x10^6/uL (3.50-5.40) Hemoglobin 12.8 g/dL (12.0-15.5) Hematocrit 38.4 % (36.0-47.0) Mean Corpuscular Volume 88 fL (79-100) Mean Corpuscular Hemoglobin 30 pg (25-35) Mean Corpuscular Hemoglobin Concent 33 g/dL (31-37) Red Cell Distribution Width 14.5 % (11.5-14.5) Platelet Count 273 x10^3/uL (140-400) Neutrophils (%) (Auto) 75 % (31-73) H Lymphocytes (%) (Auto) 9 % (24-48) L Monocytes (%) (Auto) 16 % (0-9) H Eosinophils (%) (Auto) 1 % (0-3) Basophils (%) (Auto) 0 % (0-3) Neutrophils # (Auto) 10.2 x10^3uL (1.8-7.7) H Lymphocytes # (Auto) 1.2 x10^3/uL (1.0-4.8) Monocytes # (Auto) 2.1 x10^3/uL (0.0-1.1) H Eosinophils # (Auto) 0.1 x10^3/uL (0.0-0.7) Basophils # (Auto) 0.1 x10^3/uL (0.0-0.2) Sodium Level 135 mmol/L (136-145) L Potassium Level 3.7 mmol/L (3.5-5.1) Chloride Level 95 mmol/L (98-107) L Carbon Dioxide Level 29 mmol/L (21-32) Anion Gap 11 (6-14) Blood Urea Nitrogen 19 mg/dL (7-20) Creatinine 1.4 mg/dL (0.6-1.0) H Estimated GFR (Cockcroft-Gault) 36.0 BUN/Creatinine Ratio 14 (6-20) Glucose Level 126 mg/dL (70-99) H Lactic Acid Level 1.7 mmol/L (0.4-2.0) Calcium Level 9.4 mg/dL (8.5-10.1) Magnesium Level 2.3 mg/dL (1.8-2.4) Total Bilirubin 0.7 mg/dL (0.2-1.0) Aspartate Amino Transferase (AST) 18 U/L (15-37) Alanine Aminotransferase (ALT) 25 U/L (14-59) Alkaline Phosphatase 83 U/L (46-116) Troponin I Quantitative < 0.017 ng/mL (0-0.055) BT-Loo-W-Type Natriuretic Peptide 1220 pg/mL (0-449) H Total Protein 8.3 g/dL (6.4-8.2) H Albumin 3.4 g/dL (3.4-5.0) Albumin/Globulin Ratio 0.7 (1.0-1.7) L EKG EKG EKG interpreted by me. EKG at 1409 showed sinus tachycardia at rate of 108, left atrial abnormalities, abnormal right superior axis deviation, RVH, poor R- wave progress in anteroseptal leads, no acute ST and T-wave abnormalities. Radiology/Procedures Radiology/Procedures [address] [address] IMAGING REPORT Signed PATIENT: JUAN DANIEL THOMAS ACCOUNT: [id number] : 1935 LOCATION: ER AGE: 82 SEX: F EXAM STATUS: REG ER ORD. PHYSICIAN: NEY MARROQUIN MD REASON: shortness of breath PROCEDURE: CHEST PA & LATERAL EXAM: Chest, 2 views. HISTORY: Cough. COMPARISON: 07/20/2018 FINDINGS: 2 views of the chest are obtained. There is no infiltrate, pleural effusion or pneumothorax. The heart is normal in size. There is callus formation surrounding anterior lateral fifth and sixth rib fractures. There are calcified granulomas. IMPRESSION: 1. No acute pulmonary finding. 2. Suspected healing or healed anterolateral right fifth and sixth rib fractures. Electronically signed by: Alexandria Howell MD (11/01/2018 2:56 PM) [place] [id number] DICTATED AND SIGNED BY: ALEXANDRIA HOWELL MD DATE: 11/01/18 3200 CC: NEY AMRROQUIN MD; ALENA HANEY ~ Course & Med Decision Making Course & Med Decision Making Pertinent Labs and Imaging studies reviewed. (See chart for details) Evaluation of patient in ER showed 82-year-old female patient with complaining of cough since this morning with dizziness with activity. Patient had unremarkable physical exam. Labs showed marked leukocytosis and elevation of creatinine as a chronic problem. Patient had chronic tachycardia that improved with rest. EKG did not show any new change compared to previous EKG. Plan to discharge patient home with diagnose of upper respiratory infection. Dragon Disclaimer Dragon Disclaimer This electronic medical record was generated, in whole or in part, using a voice recognition dictation system. Departure Departure: Impression: Primary Impression: Upper respiratory infection Additional Impression: Dizziness Disposition: 01 HOME, SELF-CARE (at 1517) Condition: IMPROVED Referrals: ALENA HANEY (PCP) Patient Instructions: Dizziness, Upper Respiratory Infection, Adult Additional Instructions: Drink plenty of liquids Follow-up with your primary care physician in 3-5 days Return to ER if not getting better Scripts Azithromycin (ZITHROMAX) 250 Mg Tablet 1 PKG PO UD for infection, #1 PKG Prov: NEY MARROQUIN MD 11/01/18 Benzonatate (TESSALON PERLE) 100 Mg Capsule 1 CAP PO TID for cough, #21 CAP Prov: NEY MARROQUIN MD 11/01/18 Problem Qualifiers NEY MARROQUIN MD Nov 01, 2018 15:05
[2018-11-01 15:08] LABS: INFLUENZA A PATIENT NEGATIVE (NEGATIVE); INFLUENZA B PATIENT NEGATIVE (NEGATIVE)
[2018-11-01 15:17] LABS: BILIRUBIN,URINE NEG (NEG); CLARITY,URINE CLEAR; COLOR,URINE YELLOW; GLUCOSE,URINE NEG (NEG)
[2018-11-01 15:18] LABS: BACTERIA,URINE 0 /HPF (0-FEW); NITRITE,URINE NEG (NEG); RBC,URINE OCC /HPF (0-2); SQUAMOUS EPITHELIAL CELL,UR FEW /LPF; UROBILINOGEN,URINE 0.2 mg/dL (0.2 mg/dL); WBC,URINE OCC /HPF (0-4)
[2018-11-01] MEDS ORDERED: AZIT250T PO (15:20)
[2018-11-01] MEDS ORDERED: BENZ100C PO (15:20)
[2018-11-01 15:36] VITALS: BP 128/54
--- NOTE | 2018-11-01 17:26 | EKG ---
[address] [address] Test Date: 2018-11-01 Test Time: 14:09:20 Pat Name: JUAN DANIEL THOMAS Department: Room: Gender: F Analyst: KERRI : 1935 Requested By: NEY MARROQUIN Order Number: [id number] Reading MD: Measurements Intervals [place] Rate: 108 P: 127 WA: 138 QRS: -169 QRSD: 118 T: 94 QT: 344 QTc: 465 Interpretive Statements SUPRAVENTRICULAR RHYTHM LEFT ATRIAL ABNORMALITY ABNORMAL RIGHT SUPERIOR AXIS DEVIATION R-S TRANSITION ZONE IN V LEADS DISPLACED TO THE LEFT CONSIDER RIGHT VENTRICULAR HYPERTROPHY QRS(T) CONTOUR ABNORMALITY CONSISTENT WITH HIGH LATERAL INFARCT AGE UNDETERMINED ABNORMAL ECG RI6.01 Unconfirmed report No previous ECG available for comparison
== END 2018-11-01 15:39 | disposition home or self-care (01) ==
LOC: ER 13:48
DX: J06.9 Acute upper respiratory infection, unspecified (principal); R42 Dizziness and giddiness; E78.00 Pure hypercholesterolemia, unspecified; I10 Essential (primary) hypertension; E03.9 Hypothyroidism, unspecified; Z88.2 Allergy status to sulfonamides; Z88.1 Allergy status to other antibiotic agents; Z88.8 Allergy status to other drugs, medicaments and biological substances
CPT/HCPCS: 36415; 71046; 80053; 81001; 83605; 83735; 83880; 84484; 85025; 87804; 93005; 94640; 99284; J7620

== ENCOUNTER → 2019-01-03 | Outpatient (CLI) | payer MEDICARE, OTHER ==
[~2019-01-03] MED LIST changes: +ATOR20TA58 PO; +AZIT250T PO; +BENZ100C PO; +LEVO50TA5 PO; +METO50TA29 PO
--- NOTE | 2019-01-03 16:05 | RAD ---
EXAM: Abdomen, 2 views. HISTORY: Incontinence. COMPARISON: 05/26/2018 FINDINGS: Frontal upright and supine views of the abdomen are obtained. There are nonspecific air-filled loops of bowel throughout the abdomen. There is no transition point to suggest obstruction. There is no free air. There is lumbar scoliosis. There is a calcified granuloma within the right lower lung. IMPRESSION: Nonspecific bowel gas pattern, without evidence of obstruction. Electronically signed by: Alexandria Terry MD (01/03/2019 4:02 PM) [id number]
== END | disposition home or self-care (01) ==
LOC: PMG 15:35
PROVIDERS: ATTEND Physician Assistant
DX: R15.9 Full incontinence of feces (principal); M41.86 Other forms of scoliosis, lumbar region; J84.10 Pulmonary fibrosis, unspecified
CPT/HCPCS: 74021

== ENCOUNTER → 2019-01-04 | Outpatient (CLI) | payer MEDICARE, OTHER ==
[~2019-01-04] MED LIST changes: +IOHEXOL 240 MG/ML 50ML VIAL. ONE
--- NOTE | 2019-01-04 13:46 | RAD ---
EXAM: Abdomen and pelvis CT without intravenous contrast. HISTORY: Pain. Incontinence. TECHNIQUE: Computed tomographic images of the abdomen and pelvis were obtained without intravenous contrast. Multiplanar reformatting was performed. *One or more of the following individualized dose reduction techniques were utilized for this examination: 1. Automated exposure control. 2. Adjustment of the mA and/or kV according to patient size. 3. Use of iterative reconstruction technique. COMPARISON: February 23, 2018. FINDINGS: Evaluation of the lower thorax demonstrates linear right middle lobe atelectasis or scarring. There is a 4 mm nodule within the lateral left lower lobe. There is a calcified granuloma within the right lower lobe. No hepatic lesion is seen. There is a distended gallbladder containing a single stone. No gallbladder wall thickening is seen. The pancreas is unremarkable. There are splenic and hepatic calcified granulomas. The adrenal glands are unremarkable. The kidneys are unremarkable. There is no appendicitis. There is no bowel obstruction. There is moderate colonic stool. There is slight cecal wall thickening likely due to relative under distention or the sequela of prior inflammation. There is no surrounding stranding to suggest acute colitis. There is distal colonic diverticulosis without diverticulitis. There is suspected pelvic floor relaxation with a small cystocele. The uterus is surgically absent. No pathologically enlarged lymph node is seen. There is heavily calcified plaque within the aorta and iliac bifurcation. No suspicious osseous lesion is seen. There is degenerative change throughout the lumbar spine and there is multilevel listhesis and lumbar scoliosis. IMPRESSION: 1. Cholelithiasis. 2. Distal colonic diverticulosis. 3. Suspected pelvic floor relaxation with small urinary bladder cystocele. 4. 4 mm left lower lobe pulmonary nodule. This region is excluded from the [id number] on the prior study. Follow-up can be performed according to Fleischner Society criteria if clinically indicated. Fleischner Society recommendations (Radiology 2017): SOLID NODULES Solitary solid nodule <6 mm - low-risk patient: no routine follow-up required - high-risk patient: optional CT at 12 months (particularly with suspicious nodule morphology and/or upper lobe location) Solitary solid nodule 6-8 mm - low-risk patient: CT at 6-12 months, then consider CT at 18-24 months - high risk patient: CT at 6-12 months, then if persistent CT at 18-24 months Solitary solid nodule >8 mm - consider CT at 3 months, PET/CT, or tissue sampling Multiple solid nodules <6 mm - low-risk patient: no routine follow-up required - high-risk patient: optional CT at 12 months Multiple solid nodules >6 mm - low-risk patient: CT at 3-6 months, then consider CT at 18-24 months - high risk patient: CT at 3-6 months, then if persistent CT at 18-24 months SUBSOLID NODULES Solitary ground glass nodule <6 mm - no routine follow-up required Solitary ground glass nodule > or = 6 mm - CT at 6-12 months, then if persistent CT every 2 years until 5 years Solitary part solid nodule > or = 6mm - CT at 3-4 months, the if persistent and solid component remains <6 mm, annual CT until 5 years Multiple subsolid nodules <6 mm - CT at 3-6 months, then if stable consider CT at 2 and 4 years in high risk patients Multiple subsolid nodules > or = 6 mm - CT at 3-6 months, then subsequent management based on the most suspicious nodule(s) Electronically signed by: Alexandria Terry MD (01/04/2019 1:44 PM) [id number]
== END | disposition home or self-care (01) ==
LOC: CT 10:40
PROVIDERS: ATTEND Physician Assistant
DX: K80.20 Calculus of gallbladder without cholecystitis without obstruction (principal); K57.30 Diverticulosis of large intestine without perforation or abscess without bleeding; R91.1 Solitary pulmonary nodule; M41.86 Other forms of scoliosis, lumbar region; I70.0 Atherosclerosis of aorta; M47.896 Other spondylosis, lumbar region; M43.16 Spondylolisthesis, lumbar region; K82.8 Other specified diseases of gallbladder; K75.3 Granulomatous hepatitis, not elsewhere classified; D73.89 Other diseases of spleen
CPT/HCPCS: 74176

== ENCOUNTER 2019-01-08 16:31 | Inpatient (IN) | payer MEDICARE, OTHER ==
[~2019-01-08] VITALS: Ht 149.9 cm; Wt 48.6 kg
[~2019-01-08 16:31] MED LIST changes: -ATOR20TA58 PO; -IOHEXOL 240 MG/ML 50ML VIAL. ONE; -LEVO50TA5 PO; -METO50TA29 PO
[2019-01-08 17:51] LABS: BASO # 0.1 x10^3/uL (0.0-0.2); BASO % 1 % (0-3); EOS # 0.2 x10^3/uL (0.0-0.7); EOS % 3 % (0-3); HEMATOCRIT 36.1 % (36.0-47.0); HEMOGLOBIN 12.2 g/dL (12.0-15.5); LYMPH # 1.2 x10^3/uL (1.0-4.8); LYMPH % 16 % (24-48); MEAN CORPUSCULAR HEMOGLOBIN 29 pg (25-35); MEAN CORPUSCULAR HGB CONC 34 g/dL (31-37); MEAN CORPUSCULAR VOLUME 87 fL (79-100); MONO # 0.8 x10^3/uL (0.0-1.1); MONO % 11 % (0-9); NEUT # 5.2 x10^3uL (1.8-7.7); NEUT % 70 % (31-73); PLATELET COUNT 278 x10^3/uL (140-400); RED BLOOD COUNT 4.17 x10^6/uL (3.50-5.40); RED CELL DISTRIBUTION WIDTH 14.5 % (11.5-14.5); WHITE BLOOD COUNT 7.5 x10^3/uL (4.0-11.0)
[2019-01-08 18:07] LABS: ALBUMIN 3.7 g/dL (3.4-5.0); CALCIUM 9.1 mg/dL (8.5-10.1); CREATININE 1.1 mg/dL (0.6-1.0); GFR 47.4; POTASSIUM 3.9 mmol/L (3.5-5.1); TOTAL BILIRUBIN 0.6 mg/dL (0.2-1.0); TOTAL PROTEIN 7.4 g/dL (6.4-8.2)
[2019-01-08 18:12] LABS: BILIRUBIN,URINE NEG (NEG); CLARITY,URINE CLEAR; COLOR,URINE STRAW; GLUCOSE,URINE NEG (NEG); UROBILINOGEN,URINE 0.2 mg/dL (0.2 mg/dL)
[2019-01-08 18:13] LABS: BACTERIA,URINE 0 /HPF (0-FEW); NITRITE,URINE NEG (NEG); RBC,URINE 0 /HPF (0-2); SQUAMOUS EPITHELIAL CELL,UR OCC /LPF; WBC,URINE 0 /HPF (0-4)
--- NOTE | 2019-01-08 18:22 | PHYS DOC ---
Past History Past Medical History: High Cholesterol, Hypertension, Hypothyroid Additional Past Medical Histor: PVD (NEY MARROQUIN MD) Past Surgical History: Hysterectomy, Other (NEY MARROQUIN MD) Smoking: Non-smoker Alcohol Use: None Drug Use: None (NEY MARROQUIN MD) Adult General Chief Complaint Chief Complaint: DIARRHEA HPI HPI Patient is a 83 year old female who presents with complaining of diarrhea. Patient complaining of nonbloody as a stool for 9 days without fever and chills , abdominal pain, urinary symptom, chest pain and shortness of breath, recent antibiotic use, sick contact. Patient had 1 episode of diarrhea today. Patient had history of renal insufficiency and her family are concern for electrolyte problem renal insufficiency. (NEY MARROQUIN MD) Review of Systems Review of Systems Constitutional: Denies fever or chills [] Eyes: Denies change in visual acuity, redness, or eye pain [] HENT: Denies nasal congestion or sore throat [] Respiratory: Denies cough or shortness of breath [] Cardiovascular: No additional information not addressed in HPI [] GI: Denies abdominal pain, nausea, vomiting, bloody stools, reports diarrhea [] : Denies dysuria or hematuria [] Musculoskeletal: Denies back pain or joint pain [] Integument: Denies rash or skin lesions [] Neurologic: Denies headache, focal weakness or sensory changes [] Endocrine: Denies polyuria or polydipsia [] All other systems were reviewed and found to be within normal limits, except as documented in this note. (NEY MARROQUIN MD) Allergies Allergies Allergies Coded Allergies Type Severity Reaction Last Updated Verified Sulfa (Sulfonamide Antibiotics) Allergy Intermediate 01/08/19 Yes amlodipine Allergy Intermediate Rash 01/08/19 Yes clindamycin Allergy Intermediate 01/08/19 Yes (NEY MARROQUIN MD) Physical Exam Physical Exam Constitutional: Well developed, well nourished, no acute distress, non-toxic appearance. [] HENT: Normocephalic, atraumatic. Eyes: PERRLA, EOMI, conjunctiva normal, no discharge. [] Neck: Normal range of motion, no tenderness, supple, no stridor. [] Cardiovascular:Heart rate regular rhythm, no murmur [] Lungs & Thorax: Bilateral breath sounds clear to auscultation [] Abdomen: Bowel sounds normal, soft, no tenderness, no masses, no pulsatile masses. [] Skin: Warm, dry, no erythema, no rash. [] Back: No tenderness, no CVA tenderness. [] Extremities: No tenderness, no cyanosis, no clubbing, ROM intact, no edema. [] Neurologic: Alert and oriented X 3, normal motor function, normal sensory function, no focal deficits noted. [] Psychologic: Affect normal, judgement normal, mood normal. [] (NEY MARROQUIN MD) Current Patient Data Vital Signs Vital Signs Date Time Temp Pulse Resp B/P (MAP) Pulse Ox O2 Delivery O2 Flow Rate FiO2 01/08/19 16:40 97.6 93 18 97 Room Air Lab Results Laboratory Tests Test 01/08/19 17:22 01/08/19 17:45 White Blood Count 7.5 x10^3/uL (4.0-11.0) Red Blood Count 4.17 x10^6/uL (3.50-5.40) Hemoglobin 12.2 g/dL (12.0-15.5) Hematocrit 36.1 % (36.0-47.0) Mean Corpuscular Volume 87 fL (79-100) Mean Corpuscular Hemoglobin 29 pg (25-35) Mean Corpuscular Hemoglobin Concent 34 g/dL (31-37) Red Cell Distribution Width 14.5 % (11.5-14.5) Platelet Count 278 x10^3/uL (140-400) Neutrophils (%) (Auto) 70 % (31-73) Lymphocytes (%) (Auto) 16 % (24-48) L Monocytes (%) (Auto) 11 % (0-9) H Eosinophils (%) (Auto) 3 % (0-3) Basophils (%) (Auto) 1 % (0-3) Neutrophils # (Auto) 5.2 x10^3uL (1.8-7.7) Lymphocytes # (Auto) 1.2 x10^3/uL (1.0-4.8) Monocytes # (Auto) 0.8 x10^3/uL (0.0-1.1) Eosinophils # (Auto) 0.2 x10^3/uL (0.0-0.7) Basophils # (Auto) 0.1 x10^3/uL (0.0-0.2) Sodium Level 121 mmol/L (136-145) L Potassium Level 3.9 mmol/L (3.5-5.1) Chloride Level 84 mmol/L (98-107) L Carbon Dioxide Level 28 mmol/L (21-32) Anion Gap 9 (6-14) Blood Urea Nitrogen 11 mg/dL (7-20) Creatinine 1.1 mg/dL (0.6-1.0) H Estimated GFR (Cockcroft-Gault) 47.4 BUN/Creatinine Ratio 10 (6-20) Glucose Level 94 mg/dL (70-99) Calcium Level 9.1 mg/dL (8.5-10.1) Magnesium Level 2.0 mg/dL (1.8-2.4) Total Bilirubin 0.6 mg/dL (0.2-1.0) Aspartate Amino Transferase (AST) 37 U/L (15-37) Alanine Aminotransferase (ALT) 29 U/L (14-59) Alkaline Phosphatase 74 U/L (46-116) Total Protein 7.4 g/dL (6.4-8.2) Albumin 3.7 g/dL (3.4-5.0) Albumin/Globulin Ratio 1.0 (1.0-1.7) Lipase 534 U/L (73-393) H Urine Collection Type Void Urine Color Straw Urine Clarity Clear Urine pH 7.5 Urine Specific Stanford 1.010 Urine Protein Neg (NEG-TRACE) Urine Glucose (UA) Neg mg/dL (NEG) Urine Ketones (Stick) Neg mg/dL (NEG) Urine Blood Neg (NEG) Urine Nitrite Neg (NEG) Urine Bilirubin Neg (NEG) Urine Urobilinogen Dipstick 0.2 mg/dL (0.2 mg/dL) Urine Leukocyte Esterase Neg (NEG) Urine RBC 0 /HPF (0-2) Urine WBC 0 /HPF (0-4) Urine Squamous Epithelial Cells Occ /LPF Urine Bacteria 0 /HPF (0-FEW) (NEY MARROQUIN MD) EKG EKG [] (NEY MARROQUIN MD) Radiology/Procedures Radiology/Procedures [] (NEY MARROQUIN MD) Course & Med Decision Making Course & Med Decision Making Pertinent Labs are pending. Evaluation of patient in ER showed 82-year-old male patient with complaining of diarrhea for 9 days. Patient had unremarkable physical exam. Labs are pending. Patient care transferred to Dr. Oliveira at 1800. (NEY MARROQUIN MD) Course & Med Decision Making Patient's care was received from Dr. Payan at 6:00 PM. Patient's workup is returned with findings of low sodium of 121. Findings were reviewed with Dr. Ames who is operations superintendent for hospitalist services and patient will be admitted under his care. (MARION OLIVEIRA Jr. DO) Dragon Disclaimer Dragon Disclaimer This electronic medical record was generated, in whole or in part, using a voice recognition dictation system. (NEY MARROQUIN MD) Departure Departure: Impression: Primary Impression: Diarrhea Additional Impression: Hyponatremia Disposition: ADMITTED INPATIENT Admitting Physician: Jonathan Ames (MARION OLIVEIRA Jr., DO) Condition: GOOD Referrals: ALENA HANEY (PCP) Problem Qualifiers Primary Impression: Diarrhea Diarrhea type: unspecified type Qualified Codes: R19.7 - Diarrhea, unspecified NEY MARROQUIN MD Jan 08, 2019 18:22 MARION OLIVEIRA Jr., DO Jan 08, 2019 19:51
[2019-01-08] MEDS ORDERED: ONDANSETRON PF 4 MG/2 ML VIAL. IV PRN (20:00)
[2019-01-08 22:00] VITALS: BP 208/84
[2019-01-08] MEDS: IV NORMAL SALINE 1,000ML 1,000 ML IV SCH ×2 (22:00→22:30)
[2019-01-08 23:00] VITALS: BP 176/74
[2019-01-08] MEDS ORDERED: LEVO50TA5 PO (23:02)
[2019-01-08] MEDS ORDERED: ATOR20TA58 PO (23:02)
[2019-01-08] MEDS ORDERED: METOPROLOL SUCC 24HR ER 25 MG TAB.ER.24H. PO ONE (23:30)
[2019-01-09] VITALS (18 sets, daily range): BP systolic 98–163; BP diastolic 48–73
[2019-01-09] MEDS: ALPRAZolam 0.5 MG TABLET PO SCH ×2 (00:14→21:03)
[2019-01-09] MEDS: METOPROLOL SUCC 24HR ER 25 MG TAB.ER.24H. PO SCH (02:42)
[2019-01-09 06:24] LABS: BASO # 0.1 x10^3/uL (0.0-0.2); BASO % 1 % (0-3); EOS # 0.3 x10^3/uL (0.0-0.7); EOS % 5 % (0-3); HEMATOCRIT 35.6 % (36.0-47.0); HEMOGLOBIN 12.1 g/dL (12.0-15.5); LYMPH # 1.1 x10^3/uL (1.0-4.8); LYMPH % 16 % (24-48); MEAN CORPUSCULAR HEMOGLOBIN 29 pg (25-35); MEAN CORPUSCULAR HGB CONC 34 g/dL (31-37); MEAN CORPUSCULAR VOLUME 87 fL (79-100); MONO # 0.9 x10^3/uL (0.0-1.1); MONO % 13 % (0-9); NEUT # 4.3 x10^3uL (1.8-7.7); NEUT % 65 % (31-73); PLATELET COUNT 252 x10^3/uL (140-400); RED BLOOD COUNT 4.11 x10^6/uL (3.50-5.40); RED CELL DISTRIBUTION WIDTH 14.4 % (11.5-14.5); WHITE BLOOD COUNT 6.7 x10^3/uL (4.0-11.0)
[2019-01-09 06:31] LABS: CALCIUM 9.1 mg/dL (8.5-10.1); CREATININE 1.1 mg/dL (0.6-1.0); GFR 47.4; POTASSIUM 3.2 mmol/L (3.5-5.1)
[2019-01-09] MEDS: POTASSIUM CHLORIDE 10 MEQ TABLET.ER. PO SCH (08:38)
[2019-01-09] MEDS: MAGNESIUM OXIDE 400 MG TABLET PO SCH (08:39)
[2019-01-09] MEDS ORDERED: POTASSIUM CHLORIDE 30 MEQ PO SCH (09:00)
[2019-01-09] MEDS: IV NORMAL SALINE 1,000ML 1,000 ML IV SCH ×2 (11:48→11:50)
[2019-01-09] MEDS: AMITRIPTYLINE HCL 25 MG TABLET PO SCH ×2 (12:35→21:03)
[2019-01-09] MEDS: PERPHENAZINE 2 MG TABLET PO SCH ×2 (12:42→21:03)
--- NOTE | 2019-01-09 14:35 | HP ---
ADMIT DATE: 01/08/2019 HISTORY OF PRESENT ILLNESS: The patient is an 83-year-old female patient, who lives at home and was brought to the Emergency Room by her family with complaint of recurrent bouts of diarrhea that has been going on for almost 9 days. She denied any abdominal pain. Denied any fever, chills or rigors. Denied any nausea or vomiting. She has sometimes up to 4 or 5 episodes of diarrhea, but denied any blood in her stool. Denied any nausea or vomiting. Denied any hematemesis. Denied any dizziness, lightheadedness, or vertigo. She lives alone, but she has had eaten with other member of her family on the birthday of her grandson and none of the other family members have had similar symptoms. She has never had similar episode like this. She was investigated in the Emergency Room extensively and was found to have hyponatremia and her serum sodium was only 121. She has also chronic kidney disease and in fact on admission, her serum lipase was high at 534. Her white cell count, however, was normal. She was admitted to the ICU and was started on IV fluid. PAST MEDICAL HISTORY: Significant for hypertension, hyperlipidemia, hypothyroidism. She also has peripheral vascular disease, status post what seemed to be thrombectomy done at [facility] by Dr. Collins and she has also chronic bronchitis. PAST SURGICAL HISTORY: Significant for total abdominal hysterectomy, bilateral salpingo-oophorectomy, 2 normal vaginal deliveries, bilateral cataract extraction and tonsillectomy. ALLERGIES: SHE IS ALLERGIC TO SULFA DRUGS, AMLODIPINE, CLINDAMYCIN AND PROZAC. MEDICATIONS: She is currently on following medications: She is on azithromycin 250 mg packet, atorvastatin calcium 20 mg at bedtime, amitriptyline 25 mg twice a day, perphenazine 4 mg twice a day, alprazolam 0.5 mg at bedtime, potassium chloride 30 mEq daily. She is on benzonatate 100 mg for Tessalon perles one capsule 3 times a day. She is on levothyroxine sodium 50 mcg daily. She was also on triamterene/hydrochlorothiazide according to her daughter, although it is not listed in the medication list. FAMILY HISTORY: She has one brother younger and has diabetes. Her father at age 90 because of congestive heart failure and mother at the age of 68 with metastatic cancer with unknown primary. SOCIAL HISTORY: She is , has a daughter and a son. She is an ex-smoker, quit smoking 51 years ago. She has not drank any alcohol for the last 15 years. Does not use any drugs. 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 REVIEW OF SYSTEMS: The patient denied any blurring of vision. She has bilateral cataract extraction and early onset glaucoma, but denied any macular degeneration. Denied any earache, tinnitus or sensorineural deafness. Denied any nosebleeds, stuffy nose or postnasal drip. Denied any sore throat, sore tongue, toothache, hoarseness of voice or difficulty swallowing. Denied any nausea, vomiting. Did complain of diarrhea, but no constipation. Denied any hematemesis, melena or hematochezia. Denied any dysuria, frequency or hematuria. Denied any chest pain, shortness of breath, orthopnea, paroxysmal nocturnal dyspnea. Denied any cough, phlegm or hemoptysis. Denied any dizziness, lightheadedness, or vertigo. Denied any chills, rigors or fever. PHYSICAL EXAMINATION: GENERAL: On arrival to the Emergency Room, she apparently was somewhat pale, but no jaundice, cyanosis, or thyromegaly. No jugular venous distension. No limb edema. VITAL SIGNS: Her heart rate was 93, blood pressure was 180/80, temperature was 97.6, respiratory rate was 18 and oxygen saturation was 97%. HEAD, EYES, EARS, NOSE AND THROAT: Showed normocephalic, atraumatic. NECK: Supple. HEART: Showed normal first and second heart sounds. No gallop, rub or murmur. CHEST: Clear to auscultation. No crepitation or rhonchi. ABDOMEN: Distended, soft, nontender. NEUROLOGIC: She is awake, alert, responding appropriately. All cranial nerves are intact. EXTREMITIES: She moves extremities without difficulty. She normally ambulates without assistance or assistive devices. LABORATORY DATA: Her lab work on arrival showed that her white cell count was 7500, hemoglobin 12.2, hematocrit 36, MCV 87 and platelet count of 278,000 with normal manual differential. Her chemistry showed a serum sodium 121, potassium 3.9, chloride 84, bicarbonate 28, anion gap of 9, BUN 11, creatinine was 1.1, estimated GFR was 47 mL per minute. Her glucose was 94, lactic acid was 1.1, calcium was 9.1, magnesium was 2. Total bilirubin, AST, ALT, alkaline phosphatase were normal. Total protein was 7.4, albumin was 3.7. Serum lipase was 534. Her urinalysis was essentially unremarkable and was negative for nitrite and leukocyte esterase. There are no rbc's, no wbc's, and no bacteria. She apparently was seen in the Emergency Room on 5 days ago and had had a CT scan of the abdomen and pelvis, which showed that she has cholelithiasis. She has distal colonic diverticulosis, suspected pelvic floor relaxation with small urinary bladder cystocele. She has a 4 mm left lower lobe pulmonary nodule. ASSESSMENT AND PLAN: In summary, this is an 83-year-old female patient who came in with diarrhea that has been there for almost 9 days now. She obviously has no nausea, no vomiting. There was no blood in the stool. None of her other family members have similar symptoms. She has severe hyponatremia with a serum sodium 121. She has chronic renal failure with estimated GFR of 47 mL per minute. She was started on IV fluid in the form of normal saline and her potassium and magnesium were replenished. We will follow all her labs closely and decide on further management accordingly. I will probably send stool for culture and sensitivity looking for salmonella, Shigella and Campylobacter. I will definitely hold her diuretics. Continue with the IV fluid. KRIS STOVALL MD DR: LIBRA/france JOB#: [id number] / [id number]
[2019-01-09] MEDS: POTASSIUM CL 20MEQ IN 0.9%NACL 1,000 ML IV SCH (14:55)
[2019-01-09 15:41] LABS: CALCIUM 8.5 mg/dL (8.5-10.1); CREATININE 0.9 mg/dL (0.6-1.0); GFR 59.8; POTASSIUM 3.7 mmol/L (3.5-5.1)
[2019-01-09 21:08] LABS: FECAL OB PT NEGATIVE (NEG)
[2019-01-10] MEDS: POTASSIUM CL 20MEQ IN 0.9%NACL 1,000 ML IV SCH ×2 (00:37→09:45)
[2019-01-10] MEDS: IV NORMAL SALINE 1,000ML 1,000 ML IV SCH (00:38)
[2019-01-10 04:22] VITALS: BP 98/44
--- NOTE | 2019-01-10 04:59 | PN ---
DATE: 01/09/2019 SUBJECTIVE: The patient is an 83-year-old female patient who was admitted yesterday with recurrent bouts of diarrhea that has been going on for the last 9 days. She denied any abdominal pain. Denied any nausea, vomiting. There is no blood in her stool. Denied any chills, rigors, or fever. Denied any dizziness, lightheadedness, or vertigo. She is actually eating and drinking without any difficulty. Her lab work initially showed that she has marked hyponatremia with a serum sodium of 121. She was started on IV fluid and oral potassium supplement and when I saw her today, she was sitting comfortably in her chair, in no apparent distress. She continued to have episodes of diarrhea. Again, denied any abdominal pain. Denied any dizziness or lightheadedness. Denied any nausea or vomiting. OBJECTIVE: GENERAL: When I examined her, she looked well and was clearly in no apparent respiratory distress. No pallor, jaundice, cyanosis, or thyromegaly. No jugular venous distension. No limb edema. VITAL SIGNS: Heart rate 72, blood pressure 153/66, temperature was 98.1, respiratory rate was 19 and oxygen saturation was 98% on room air. HEAD, EYES, EARS, NOSE AND THROAT: Normocephalic, atraumatic. NECK: Supple. HEART: Showed normal first and second heart sounds. No gallop, rub or murmur. CHEST: Clear to auscultation. No crepitation or rhonchi. ABDOMEN: Distended, soft, nontender. NEUROLOGIC: She is awake, alert, responding appropriately. All cranial nerves intact. She moves extremities without difficulty. She ambulates without assistance or assistive devices. Her intake over the last 24 hours and output are incompletely recorded. LABORATORY DATA: Her lab work this morning showed a serum sodium of 128, potassium 3.2, chloride 93, bicarbonate 27, anion gap of 8, BUN 8, creatinine 1.1, estimated GFR was 47 mL per minute. Her glucose was 95, calcium was 9.1. Her white cell count was 6700, hemoglobin 12, hematocrit 36, MCV 87 and platelet count 252,000 with normal manual differential. ASSESSMENT: Diarrhea without any bloody stool that is going on for almost 9 days. No nausea, no vomiting, no chills, rigors or fever. No abdominal pain and no dizziness or lightheadedness. She was found to have hyponatremia. She has chronic kidney disease and hypokalemia. My plan is to replenish her potassium and sodium. We will send her stool for C. diff, which was done yesterday and was negative. She did have a CT scan of the abdomen and pelvis, which showed that the patient has cholelithiasis, distal colonic diverticulosis without diverticulitis, has suspected pelvic floor relaxation, and small urinary bladder cystocele. PLAN: My plan is to arrange for her to repeat her electrolytes in the form of fasting lipid profile and lipase this afternoon. Repeat her labs tomorrow and arrange for her to have an abdominal ultrasound. We sent also stool for culture and sensitivity, looking for Shigella, salmonella, Campylobacter. She has peripheral vascular disease and that she has ischemic colitis, is a possibility, although the fact that there is no blood in the stool argues against that. KRIS STOVALL MD DR: LIBRA/france JOB#: [id number] / [id number]
[2019-01-10 06:35] LABS: ALBUMIN 2.6 g/dL (3.4-5.0); ALBUMIN/GLOBULIN RATIO 0.9 (1.0-1.7); CALCIUM 8.5 mg/dL (8.5-10.1); CREATININE 0.8 mg/dL (0.6-1.0); GFR 68.5; POTASSIUM 3.8 mmol/L (3.5-5.1); TOTAL BILIRUBIN 0.4 mg/dL (0.2-1.0); TOTAL PROTEIN 5.4 g/dL (6.4-8.2)
[2019-01-10] MEDS: METOPROLOL SUCC 24HR ER 25 MG TAB.ER.24H. PO SCH ×2 (07:07→12:46)
[2019-01-10] MEDS: POTASSIUM CHLORIDE 10 MEQ TABLET.ER. PO SCH (08:21)
[2019-01-10] MEDS: MAGNESIUM OXIDE 400 MG TABLET PO SCH (08:21)
--- NOTE | 2019-01-10 08:41 | RAD ---
Examination: ABDOMEN LTD History: Chronic diarrhea. Gallstone. Comparison/Correlation: 05/26/2018 CT abdomen and pelvis without contrast Findings: Limited right upper quadrant ultrasound exam was performed. There is a mobile gallstone within the gallbladder measuring up to 1.4 cm diameter. No evidence of cholecystitis or biliary dilatation. Liver length is 13.6 cm. Proximal pancreas is normal. Distal pancreas is obscured by bowel gas. Inferior vena cava is unremarkable. Common bile that measures 0.4 cm. Right kidney measures 8.1 cm x 4.3 cm x 4.7 cm. No right hydronephrosis. No right upper quadrant ascites. Impression: Cholelithiasis. No acute process. Electronically signed by: Kel Sutton MD (01/10/2019 8:38 AM) [id number]
[2019-01-10] MEDS: AMITRIPTYLINE HCL 25 MG TABLET PO SCH (12:43)
[2019-01-10] MEDS: PERPHENAZINE 2 MG TABLET PO SCH (12:43)
[2019-01-10 12:47] VITALS: BP 165/67
[2019-01-10] MEDS ORDERED: METO50TA29 PO (14:14)
--- NOTE | 2019-01-10 19:14 | DS ---
DATE OF DISCHARGE: 01/10/2019 HOSPITAL COURSE: The patient is sitting slightly propped up in bed, no apparent distress. On questioning her, she denied any complaints. Nursing staff did not voice any concern and stated that she has an uneventful night. She has had no more episodes of diarrhea. Her chemistry showed her serum sodium has normalized to 135, potassium was 3.8. She has had semi-formed stool this morning and last night. Denied any abdominal pain. Denied any dizziness, lightheadedness, or vertigo. Her stool was negative for C diff toxin, was negative also for occult blood, and her nasal screen for MRSA by PCR was negative. PHYSICAL EXAMINATION: GENERAL: When I examined her this afternoon, she looked well and was clearly in no apparent respiratory distress. No pallor, jaundice, cyanosis, or thyromegaly. No jugular venous distension. No limb edema. VITAL SIGNS: Her heart rate was 79, blood pressure was 165/67, temperature was 97.1, respiratory rate 20, and oxygen saturation was 93% on room air. HEAD, EYES, EARS, NOSE, AND THROAT: Normocephalic, atraumatic. NECK: Supple. HEART: Showed normal first and second heart sounds with no gallop, rub, or murmur. CHEST: Clear to auscultation. No crepitation or rhonchi. ABDOMEN: Scaphoid, soft, nontender. NEUROLOGIC: She is awake, alert, responding appropriately. All her cranial nerves intact. She moves extremities without difficulty. She ambulates without assistance or assistive devices. Her intake over the last 24 hours was 3100, no output was recorded. LABORATORY DATA: Her lab work this morning showed her white cell count was 6700, hemoglobin 12, hematocrit 36, MCV 87, and platelet count 252,000. Her chemistry showed serum sodium of 135, potassium was 3.8, chloride 102, bicarbonate 23, anion gap of 10, BUN 7, creatinine 0.8. Estimated GFR was 68 mL/min. Her glucose was 93, calcium was 8.5. Total bilirubin, AST, ALT, alkaline phosphatase were normal. Total protein was 5.4, albumin was 2.6. Urinalysis was essentially unremarkable. DISCHARGE MEDICATIONS: She was discharged home to continue on metoprolol succinate 50 mg once a day, alprazolam 0.5 mg at bedtime, amitriptyline 25 mg twice a day, atorvastatin 20 mg at bedtime, benzonatate for Tessalon Perles 100 mg 3 times a day, levothyroxine sodium 50 mcg once a day, and perphenazine 4 mg twice a day. FINAL DISCHARGE DIAGNOSES: 1. Diarrhea, subsided. 2. Hyponatremia, resolved. Her serum sodium is up to 135 mEq/L. 3. [id number] kidney disease, resolved. 4. Hypokalemia, resolved. She did have abdominal ultrasound, which showed that there is mobile gallstone within the gallbladder measuring up to 1.4 cm in diameter. No evidence of cholecystitis or biliary obstruction with dilatation. The liver is 13.6 cm. Proximal pancreas normal, distal pancreas is obscured by bowel gas. Inferior vena cava is unremarkable Common bile duct measures only 0.4. Right kidney measures 8.1 x 4.3 x 4.7 cm and no right hydronephrosis and no right upper quadrant ascites. The patient is able to be discharged to follow up with her primary care physician and she has an appointment to see Dr. Sher this coming . KRIS STOVALL MD DR: LIBRA/france JOB#: [id number] / [id number]
== END 2019-01-10 15:30 | disposition home or self-care (01) | DRG 683 ==
LOC: ER 16:31 → ICU 19:50
PROVIDERS: ADMIT Internal Medicine; ATTEND Internal Medicine
DX: N17.9 Acute kidney failure, unspecified (principal); E87.1 Hypo-osmolality and hyponatremia; R19.7 Diarrhea, unspecified; E03.9 Hypothyroidism, unspecified; E78.00 Pure hypercholesterolemia, unspecified; E78.5 Hyperlipidemia, unspecified; E87.6 Hypokalemia; I12.9 Hypertensive chronic kidney disease with stage 1 through stage 4 chronic kidney disease, or unspecified chronic kidney disease; I73.9 Peripheral vascular disease, unspecified; J42 Unspecified chronic bronchitis; K57.30 Diverticulosis of large intestine without perforation or abscess without bleeding; K80.20 Calculus of gallbladder without cholecystitis without obstruction; N18.9 Chronic kidney disease, unspecified; Z82.49 Family history of ischemic heart disease and other diseases of the circulatory system; Z87.891 Personal history of nicotine dependence; Z83.3 Family history of diabetes mellitus; Z90.710 Acquired absence of both cervix and uterus; Z98.41 Cataract extraction status, right eye; Z98.42 Cataract extraction status, left eye
CPT/HCPCS: 36415; 76705; 80048; 80053; 81001; 82274; 83605; 83615; 83690; 83735; 84484; 85025; 87045; 87493; 87641; Q0175; 99285-25; J7030

== ENCOUNTER → 2019-02-16 | Outpatient (CLI) | payer MEDICARE, OTHER ==
[~2019-02-16] MED LIST changes: +ATOR20TA58 PO; +LEVO50TA5 PO; +METO50TA29 PO
--- NOTE | 2019-02-16 13:56 | RAD ---
Examination: NM HEPATOBILIARY SCAN WO EF History: Known gallstone - ordered without EF 5.5mci 99mTc Choletec Abd pain and diarrhea post fatty meal Comparison/Correlation: None Findings: 5.5 mCi technetium 99m Choletec was intravenously administered for purposes of hepatobiliary scintigraphy. Uptake of radiotracer by liver is normal. Gallbladder is visualized at 15 minutes. No biliary dilatation. Radiotracer is within small bowel at 35 minutes. Impression: Normal hepatobiliary scintigraphy. Electronically signed by: Kel Sutton MD (02/16/2019 1:53 PM) [facility]
== END | disposition home or self-care (01) ==
LOC: NM 08:20
PROVIDERS: ATTEND Physician Assistant Medical
DX: K80.20 Calculus of gallbladder without cholecystitis without obstruction (principal)
CPT/HCPCS: 78226; 96374; A9537

== ENCOUNTER → 2019-06-04 | Outpatient (CLI) | payer MEDICARE, OTHER ==
--- NOTE | 2019-06-04 16:32 | RAD ---
Examination: 2 views of the right elbow HISTORY: History of right elbow pain COMPARISON: None available. FINDINGS: The alignment of the elbow joint grossly appears unremarkable. There is no acute fracture or dislocation. No significant elbow joint effusion is evident. Mild joint space loss identified in the elbow joint likely degenerative changes. IMPRESSION: No acute osseous findings. Electronically signed by: Clay Martinez MD (06/04/2019 4:30 PM) [id number]
== END | disposition home or self-care (01) ==
LOC: PMG 15:50
PROVIDERS: ATTEND Physician Assistant Medical
DX: S59.901A Unspecified injury of right elbow, initial encounter (principal); X58.XXXA Exposure to other specified factors, initial encounter; Y93.89 Activity, other specified; Y92.89 Other specified places as the place of occurrence of the external cause; Y99.8 Other external cause status
CPT/HCPCS: 73070

== ENCOUNTER → 2019-08-09 | Outpatient (CLI) | payer MEDICARE, OTHER ==
--- NOTE | 2019-08-10 16:17 | RAD ---
2 view right foot study Clinical indications: Right foot pain started last night. No known injury. FINDINGS: No acute fracture or dislocation or lytic process is evident. No periosteal reaction is seen. A bunion is seen. 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 No plantar spur of the calcaneus is seen. IMPRESSION: No acute osseous abnormality. Electronically signed by: Ray Valencia MD (08/10/2019 4:15 PM) [id number]
== END | disposition home or self-care (01) ==
LOC: PMG 17:30
PROVIDERS: ATTEND Registered Nurse
DX: M19.071 Primary osteoarthritis, right ankle and foot (principal); M21.611 Bunion of right foot
CPT/HCPCS: 73620

== ENCOUNTER 2019-08-11 15:14 | Emergency (ER) | payer OTHER, MEDICARE ==
[~2019-08-11] VITALS: Ht 157.5 cm; Wt 63.5 kg
[2019-08-11] MEDS ORDERED: IV NORMAL SALINE 1,000ML 1,000 ML IV ONE (15:30)
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
[2019-08-11 16:17] LABS: BASO % 0 % (0-3); EOS % 0 % (0-3); HEMATOCRIT 38.4 % (36.0-47.0); HEMOGLOBIN 12.9 g/dL (12.0-15.5); LYMPH # 0.6 x10^3/uL (1.0-4.8); LYMPH % 9 % (24-48); MEAN CORPUSCULAR HEMOGLOBIN 31 pg (25-35); MEAN CORPUSCULAR HGB CONC 34 g/dL (31-37); MEAN CORPUSCULAR VOLUME 91 fL (79-100); MONO # 0.2 x10^3/uL (0.0-1.1); MONO % 3 % (0-9); NEUT # 6.1 x10^3uL (1.8-7.7); NEUT % 87 % (31-73); PLATELET COUNT 228 x10^3/uL (140-400); RED BLOOD COUNT 4.25 x10^6/uL (3.50-5.40); RED CELL DISTRIBUTION WIDTH 13.6 % (11.5-14.5)
[2019-08-11 16:22] LABS: ALBUMIN 3.7 g/dL (3.4-5.0); ALBUMIN/GLOBULIN RATIO 0.9 (1.0-1.7); CALCIUM 9.1 mg/dL (8.5-10.1); CREATININE 1.4 mg/dL (0.6-1.0); GFR 35.9; POTASSIUM 3.7 mmol/L (3.5-5.1); TOTAL BILIRUBIN 0.3 mg/dL (0.2-1.0); TOTAL PROTEIN 7.8 g/dL (6.4-8.2)
--- NOTE | 2019-08-11 16:35 | RAD ---
PQRS Compliance Statement: One or more of the following individualized dose reduction techniques were utilized for this examination: 1. Automated exposure control 2. Adjustment of the mA and/or kV according to patient size 3. Use of iterative reconstruction technique PQRS Compliance Statement: One or more of the following individualized dose reduction techniques were utilized for this examination: 1. Automated exposure control 2. Adjustment of the mA and/or kV according to patient size 3. Use of iterative reconstruction technique CT CHEST ABD PELVIS W/CONTRAST 08/11/2019 3:24 PM INDICATION: Thoracolumbar abdominal pain COMPARISON: None available TECHNIQUE: Multiple axial CT images of the chest, abdomen and pelvis were obtained after the intravenous administration of 75 mL Omnipaque 300. Coronal and sagittal reformats are provided. FINDINGS: There is a 4 mm solid noncalcified pulmonary nodule in the left upper lobe (series 4, image 23). Subpleural bandlike opacity in the left upper lobe and right middle lobe most favor areas of scarring or subsegmental atelectasis. Calcified granulomas are identified measuring up to 6 mm in the right lower lobe. There are no pleural effusions. No pulmonary vascular congestion or pneumothorax. Minimal biapical pleural-parenchymal scarring is identified. Thyroid gland is diminutive in caliber. Precarinal lymph node measures 6 mm by short axis. Right hilar lymph node measures 3 mm by short axis. No pathologically enlarged thoracic lymphadenopathy. Heart size is within normal limits. Thoracic aorta is normal in course and caliber. Mild coronary artery vascular calcifications are present. There is mild to moderate stenosis of the proximal right common carotid artery secondary to noncalcified atheromatous plaque. Intimal thickening is noted at the origin of the right innominate artery. Liver is normal in appearance. Calcifications within the spleen likely represent sequela prior granulomatous exposure. Minimal subcapsular fluid is noted along the posterior margin spleen which may be sequela of prior trauma. This fluid collection measures maximally 5 mm and extends along approximately 10 percent of the splenic surface area. Adrenal glands are normal in appearance. Pancreas is normal in appearance. Calcified gallstone is identified within gallbladder. No significant gallbladder wall thickening or pericholecystic fluid. Dense calcified plaque is identified involving the abdominal aorta. Mild stenosis at the origin of the celiac axis. 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 No pathologically enlarged lymph nodes are identified in abdomen and pelvis. There is no free fluid. There is no free intraperitoneal air. Mild colonic diverticulosis. There is mild irregular mucosal fold thickening involving the greater curvature of the stomach. There is no perigastric inflammatory changes. Gastric ulcerations may have similar appearance. Correlate with any history of peptic ulcer disease. Appendix is normal in appearance. No bowel obstruction is identified. Small amount of fecal debris is noted throughout the colon. Kidneys are normal in appearance. No hydronephrosis or suspicious renal mass. Urinary bladder is within normal limits given degree of distention. Uterus is surgically absent or atrophic. No suspicious adnexal mass is identified. Minimal subcutaneous soft tissue stranding is noted superficial to the left gluteus sonja measuring 3.5 cm x 1.5 cm. Consideration may be given for an area of fat necrosis. No suspicious osseous abnormality is identified. Dextroconvex scoliosis of the lumbar spine is identified with apex dextroconvex curvature at L2-L3. Moderate lumbar spondylosis. IMPRESSION: 1. 4 mm solid noncalcified pulmonary nodule is identified in the left upper lobe, indeterminate. Findings most favor noncalcified granulomatous disease, however optional one-year follow-up chest CT may be of benefit based on clinical risk factors. 2. Mild to moderate atherosclerotic changes of the thoracic aorta with mild to moderate stenosis of the proximal right common carotid artery. 3. Gastric mucosal irregularity along the greater curvature may reflect peptic ulcer disease. If not already recently performed, endoscopy may be of benefit to evaluate for neoplastic etiology. 4. 3.5 x 1.5 cm area of fat stranding along the superficial subcutaneous soft tissues along the left gluteus sonja. Correlate with any recent history of trauma as consideration may be given for an area of fat necrosis. 5. Dense plaque is noted involving the abdominal aorta with at least moderate stenosis of the superior mesenteric artery origin. 6. Minimal subcapsular fluid is noted along the posterior margin of the spleen, nonspecific. Correlate with any recent history of trauma. Electronically signed by: Aura Finley MD (08/11/2019 4:33 PM) [facility] [place]
[2019-08-11 17:55] VITALS: BP 193/92
[2019-08-11] MEDS ORDERED: MORPHINE SULFATE 2 MG/ML DISP.SYRIN. ONE (18:28)
[2019-08-11] MEDS ORDERED: MORPHINE SULFATE 2 MG/ML DISP.SYRIN. IV ONE (18:30)
== END 2019-08-11 18:25 | disposition short-term general hospital (02) ==
LOC: ER 15:14
DX: D73.5 Infarction of spleen (principal); R10.11 Right upper quadrant pain; E78.00 Pure hypercholesterolemia, unspecified; I10 Essential (primary) hypertension; E03.9 Hypothyroidism, unspecified; Z90.710 Acquired absence of both cervix and uterus; Z88.2 Allergy status to sulfonamides; Z88.1 Allergy status to other antibiotic agents; Z88.8 Allergy status to other drugs, medicaments and biological substances; V89.2XXA Person injured in unspecified motor-vehicle accident, traffic, initial encounter; Y93.89 Activity, other specified; Y92.89 Other specified places as the place of occurrence of the external cause; Y99.8 Other external cause status
CPT/HCPCS: 36415; 71260; 74177; 80053; 83690; 85025; 86850; 86900; 86901; 96374; 99285; J2270; J7030

== ENCOUNTER → 2020-06-06 | Outpatient (CLI) | payer MEDICARE, OTHER ==
--- NOTE | 2020-06-06 23:39 | RAD ---
EXAM: PA and Lateral Views of the Chest DATE: 06/06/2020 12:00 AM INDICATION: PERSISTENT COUGH, HAD + COVID TEST 16 DAYS AGO COMPARISON: 11/11/2018, 07/20/2018 FINDINGS: The heart is not enlarged. Atherosclerotic calcifications of aorta are seen. Calcified granuloma right lung base. Emphysematous changes are seen. No lobar consolidation. No pleural effusion or pneumothorax. IMPRESSION: 1. No radiographic evidence for acute cardiopulmonary process. Electronically signed by: Dae Nazario MD (06/06/2020 11:37 PM) [email or web address]
== END | disposition home or self-care (01) ==
LOC: PMG 13:52
PROVIDERS: ATTEND Physician Assistant Medical
DX: J43.8 Other emphysema (principal); I70.0 Atherosclerosis of aorta; J84.10 Pulmonary fibrosis, unspecified; R05 Cough
CPT/HCPCS: 71046

== ENCOUNTER → 2020-07-11 | Outpatient (CLI) | payer MEDICARE, OTHER ==
--- NOTE | 2020-07-11 15:15 | RAD ---
EXAM: Pelvis and right hip, 3 views. HISTORY: Pain. COMPARISON: None. FINDINGS: A frontal view of the pelvis and frontal and frog-leg views the right hip are obtained. There is no fracture, dislocation or subluxation. There are vascular calcifications. There is degenerative change at the lower lumbar levels. There is subchondral sclerosis involving the sacroiliac joints. IMPRESSION: No acute osseous finding. Electronically signed by: Alexandria Terry MD (07/11/2020 3:13 PM) [email or web address]
--- NOTE | 2020-07-11 16:06 | RAD ---
EXAM: Lumbar spine, 5 views. HISTORY: Pain. COMPARISON: None. FINDINGS: 5 views of the lumbar spine are obtained. There is lumbar dextroscoliosis centered at L2. There is grade 1 anterolisthesis of L4 on L5. There is degenerative endplate remodeling with disc space narrowing and osteophytosis primarily at L2-L3 and L3-L4. There is multilevel facet arthropathy. No acute fracture is seen. IMPRESSION: 1. Multilevel degenerative change throughout the lumbar spine. 2. Lumbar scoliosis and grade 1 anterolisthesis of L4 on L5. Electronically signed by: Alexandria Terry MD (07/11/2020 4:03 PM) [email or web address]
== END | disposition home or self-care (01) ==
LOC: PMG 13:03
PROVIDERS: ATTEND Physician Assistant Medical
DX: M47.816 Spondylosis without myelopathy or radiculopathy, lumbar region (principal); M43.16 Spondylolisthesis, lumbar region; M41.86 Other forms of scoliosis, lumbar region; M46.1 Sacroiliitis, not elsewhere classified; M61.9 Calcification and ossification of muscle, unspecified; M25.551 Pain in right hip
CPT/HCPCS: 72110; 73502

== ENCOUNTER → 2021-01-16 | Outpatient (CLI) | payer MEDICARE, OTHER ==
[~2021-01-16] MED LIST changes: +IOHEXOL 300 MG/ML 75 ML VIAL. IV ONE
[2021-01-16 13:04] LABS: CREATININE 1.2 mg/dL (0.6-1.0); GFR 42.7
--- NOTE | 2021-01-18 08:32 | RAD ---
EXAMINATION: CT THORAX WO (CT CHEST WITHOUT IV CONTRAST) CLINICAL HISTORY: Left upper lobe pulmonary nodule Technique: Spiral CT acquisition of the chest from the thoracic inlet to the upper abdomen without co ntrast. CT Dose Reduction Employed: One or more of the following individualized dose reduction techniques wer e utilized for this examination: 1. Automated exposure control 2. Adjustment of the mA and/or kV ac cording to patient size 3. Use of iterative reconstruction technique. Comparison: CT chest/abdomen/pelvis 08/11/2019 FINDINGS: Lung Parenchyma, Pleura, and Airways: 4 mm solid pulmonary nodule lateral left upper lobe (series 2 i mage 62), unchanged in overall size with slightly more rounded appearance compared to prior study. 5 mm solid pulmonary nodule lateral left lower lobe (series 2 image 178), previously 4 mm. Multiple add itional tiny micronodules and old calcified granulomas scattered throughout the bilateral lungs. Scat tered mild curvilinear scarring and/or subsegmental atelectasis within bilateral lungs, similar to pr ior study. No consolidation. No pleural effusion. Central airways patent. Minimal bronchiectasis in t he right middle lobe and lingula. Lower Neck, Mediastinum, and Heart: Visualized thyroid gland within normal limits. No mediastinal, hi lar, or axillary lymphadenopathy. Main pulmonary artery normal in caliber. Atherosclerotic calcificat ion of the aorta and branch vessels. Extensive coronary atherosclerotic calcification. Normal heart s ize. No pericardial effusion. Bones and Soft Tissues: Exaggerated kyphosis of the thoracic spine with multilevel degenerative duran es. Diffuse generalized osteopenia. Upper Abdomen: Partially visualized cholelithiasis without evidence of acute cholecystitis. Multiple old calcified granulomas in the spleen. Bilateral renal vascular calcification. 2 small focal densiti es in the dependent stomach, possibly related to medication tablets or ingested food. IMPRESSION: No evidence of acute cardiopulmonary abnormality or significant interval change. 4 mm and 5 mm solid pulmonary nodules in the left upper and lower lobes, respectively, without signif icant interval change. Electronically signed by: Kareem Thibodeaux DO (01/18/2021 8:30 AM) [facility]
== END ==
LOC: CT 12:32
PROVIDERS: ATTEND Physician Assistant Medical
DX: R91.8 Other nonspecific abnormal finding of lung field (principal); J47.9 Bronchiectasis, uncomplicated; I70.0 Atherosclerosis of aorta; R06.02 Shortness of breath; R79.1 Abnormal coagulation profile; K80.20 Calculus of gallbladder without cholecystitis without obstruction; I25.10 Atherosclerotic heart disease of native coronary artery without angina pectoris
CPT/HCPCS: 36415; 71250; 82565; 84520

== ENCOUNTER 2021-01-26 10:45 | Emergency (ER) | payer MEDICARE, OTHER ==
[~2021-01-26] VITALS: Ht 157.5 cm; Wt 49.7 kg
[~2021-01-26 10:45] MED LIST changes: -IOHEXOL 300 MG/ML 75 ML VIAL. IV ONE
--- NOTE | 2021-01-26 12:17 | PHYS DOC ---
Past History Past Medical History: Hypertension, Hypothyroid Additional Past Medical Histor: PVD Past Surgical History: Hysterectomy, Other Smoking: Non-smoker Alcohol Use: None Drug Use: None Adult General Chief Complaint Chief Complaint: LACERATION/AVULSION HPI HPI Patient is a 85-year-old female reports waking up at approximately 430 this morning to turn her heat on in her home, states she did not turn her whole light on and tripped over a fan falling forward and striking her forehead against a desk. Patient states she did not lose consciousness. Patient states it cut her forehead. Patient complains that pain at the site of the laceration, reports a 1/10 on a 1-10 pain scale. Patient denies pain to her neck. Patient denies any numbness or dizziness. Patient denies any visual changes. Patient states the only blood thinning medication she takes is a 81 mg aspirin daily however she did not take her aspirin this morning. Patient states her last tetanus shot was greater than 5 years ago. Patient states she did not take medications for her pain, did not place any ice packs on her forehead. Patient states she just put a pressure dressing on her forehead and came in for evaluation today. Patient denies any other physical complaints or physical concerns. Review of Systems Review of Systems 14 body systems of review of systems have been reviewed. See HPI for pertinent positives and negative responses, otherwise all other systems are negative, nonpertinent or noncontributory. Allergies Allergies Allergies Coded Allergies Type Severity Reaction Last Updated Verified Sulfa (Sulfonamide Antibiotics) Allergy Intermediate 01/08/19 Yes amlodipine Allergy Intermediate Rash 01/08/19 Yes clindamycin Allergy Intermediate 01/08/19 Yes Physical Exam Physical Exam Constitutional: Well developed, well nourished, no acute distress, non-toxic appearance. 85-year-old female in no apparent distress has a pressure dressing over her forehead scalp laceration. HENT: Normocephalic, atraumatic, bilateral external ears normal, oropharynx moist, no oral exudates, nose normal. No drainage from external auditory ca nals, bilateral TMs within normal limits, no moscoso sign appreciated, no raccoon eyes appreciated, no drainage from nares, bilateral nasal turbinates moist, nonerythematous. There is a 3.5 cm laceration to the forehead just above the left brow, bleeding controlled with pressure bandage. Full-thickness laceration, no depressions appreciated, mild bruising around the laceration sit e. Eyes: PERRLA, EOMI, conjunctiva normal, no discharge. Pupils 2 mm in diameter. Neck: Normal range of motion, no tenderness, supple, no stridor. No step-offs appreciated, no neck pain to palpation, no nuchal rigidity, no meningismus signs. Cardiovascular:Heart rate regular rhythm, no murmur, heart sounds S1-S2 auscu ltation. Lungs & Thorax: Bilateral breath sounds clear to auscultation all lung early. Abdomen: Bowel sounds normal, soft, no tenderness, no masses, no pulsatile masses. Skin: Warm, dry, no erythema, no rash. See HEENT note for laceration. Back: No tenderness, no CVA tenderness. Extremities: No tenderness, no cyanosis, no clubbing, ROM intact, no edema. Neurologic: Alert and oriented X 3, normal motor function, normal sensory function, no focal deficits noted. Psychologic: Affect normal, judgement normal, mood normal. Current Patient Data Vital Signs Vital Signs Date Time Temp Pulse Resp B/P (MAP) Pulse Ox O2 Delivery O2 Flow Rate FiO2 01/26/21 11:31 98.6 91 182/91 (121) 98 Room Air EKG EKG [] Radiology/Procedures Radiology/Procedures PATIENT: JUAN DANIEL THOMAS ACCOUNT: [id number] : 1935 LOCATION: ER AGE: 85 SEX: F EXAM STATUS: REG ER ORD. PHYSICIAN: CANDICE GALLARDO APRN REASON: FALL, BLUNT FOREHEAD INJURY PROCEDURE: CT HEAD AND CERVICAL SPINE WO EXAM: CT head and cervical spine without contrast INDICATION: Blunt head trauma COMPARISON: CT head 05/25/2018 TECHNIQUE: Axial CT imaging through the head and cervical spine without intravenous contrast. Sagittal and coronal reformats were obtained. One or more of the following individualized dose reduction techniques were utilized for this examination: 1. Automated exposure control 2. Adjustment of the mA and/or kV according to patient size 3. Use of iterative reconstruction technique. FINDINGS: CT head: The ventricles and sulci are mildly enlarged, reflecting age-related volume loss. There is a mild burden of periventricular and deep hypoattenuating white matter lesions. There is physiologic mineralization in the basal ganglia. Lund-white matter differentiation is maintained. There is no intracranial hemorrhage, acute infarct, or mass lesion. Basal cisterns are clear. The calvarium is intact. The visualized paranasal sinuses and mastoid air cells are clear. Globes and orbits are intact. There is soft tissue swelling and a laceration of the forehead on the left. CT cervical spine: No acute fracture. Alignment is normal. The craniocervical junction and atlantoaxial interval are maintained. There is mild disc space narrowing at C5- C6. Mild left foraminal narrowing at C5-C6. Mild facet arthrosis at C2-C3 and C3-C4. Prevertebral soft tissues normal. There is pleural parenchymal thickening and soft calcifications in the lung apices, nonspecific. IMPRESSION: 1. No acute intracranial abnormality. 2. No acute osseous abnormality of the cervical spine. Electronically signed by: Joanna Neal MD (01/26/2021 12:45 PM) [id number] DICTATED AND SIGNED BY: JOANNA NEAL MD DATE: 01/26/21 1237 CC: CANDICE GALLARDO APRN; ALENA HANEY ~MTH0 0 Heart Score C/O Chest Pain: No Risk Factors: Risk Factors: DM, Current or recent (<one month) smoker, HTN, HLP, family history of CAD, obesity. Risk Scores: Risk Factors: DM, Current or recent (<one month) smoker, HTN, HLP, family history of CAD, obesity. Course & Med Decision Making Course & Med Decision Making Pertinent Labs and Imaging studies reviewed. (See chart for details) 85-year-old female, vital signs reviewed, presents to the emergency room concerning for head laceration after a fall at 430 this morning. Physical examination concerning for possible closed head injury, will order CT head and C-spine without IV contrast, will bring patient's tetanus status up-to-date today in the emergency department, see laceration repair note. Discussed with patient and patient family member suture care, sutures out in 5 to 7 days, head injury precautions, return to ER precautions and concerns, follow-up with primary care physician to have sutures removed, [id number] Tylenol for pain or discomfort, may resume home medications, patient and patient's family member had no further questions or concerns and was discharged without incident. Dragon Disclaimer Dragon Disclaimer This electronic medical record was generated, in whole or in part, using a voice recognition dictation system. Departure Departure: Impression: Primary Impression: Laceration of forehead, left, complicated Additional Impressions: Closed head injury Fall from slip, trip, or stumble Rohpchysuj-dlefhak-tltugzcoo (DTP) vaccination Disposition: 01 DC HOME SELF CARE/HOMELESS Condition: GOOD Referrals: ALENA HANEY (PCP) Patient Instructions: Head Injury, Adult, Laceration Care, Adult, Sutured Wound Care Additional Instructions: We have placed to dissolvable underlying sutures that brought your wound together, these will dissolve and do not require removal. However there were 12 sutures placed to complete the laceration closure that need removed in 5-7 days. Please call your primary care provider today and/or tomorrow to make appointment for suture removal in 5 to 7 days. We have discussed head injury precautions, please return to the emergency department for worsening symptoms or other concerns, please use ice packs 30 minutes on 30 minutes off to for the next 24 to 48 hours reduce swelling and bruising. Please use night lights at home to prevent further accidental falls. We have brought your tetanus immun ization status up-to-date today in the emergency department. EMERGENCY DEPARTMENT GENERAL DISCHARGE INSTRUCTIONS Thank you for coming to [facility] (ED) today and trusting us with you care. We trust that you had a positivie experience in our Emergency Department. If you wish to speak to the department management, you may call the director at [phone]. YOUR FOLLOW UP INSTRUCTIONS ARE FOLLOWS: 1. Do you have a private Doctor? If you do not have a private doctor, please ask for a resource list of physicians or clinics that may be able to assist you with follow up care. 2. The Emergency Physician has interpreted your x-rays. The X-Ray specialist will also review them. If there is a change in the findings, you will be notified in 48 hours when at all possible. 3. A lab test or culture has been done, your results will be reviewed and you will be notified if you need a change in treatment. ADDITIONAL INSTRUCTIONS AND INFORMATION: 1. Your care today has been supervised by a physician who is specially trained in emergency care. Many problems require more than one evaluation for a complete diagnosis and treatment. We recommend that you schedule your follow up appointment as recommended to ensure complete treatment of you illness or injury. If you are unable to obtain follow up care and continue to have a problem, or if your condition worsens, we recommend that you return to the ED. 2. We are not able to safely determine your condition over the phone nor are we able to give sound medical advice over the phone. For these safety reasons, if you call for medical advice we will ask you to come to the ED for further evaluation. 3. If you have any questions regarding these discharge instructions please call the ED at [phone]. SAFETY INFORMATION: In the interest of safety, wellness, and injury prevention; we encourage you to wear your sealbelt, if you smoke; quite smoking, and we encourage family to use a protective helmet for bicycling and other sporting events that present an increased risk for head injury. IF YOUR SYMPTOMS WORSEN OR NEW SYMPTOMS DEVELOP, OR YOU HAVE CONCERNS ABOUT YOUR CONDITION; OR IF YOUR CONDITION WORSENS WHILE YOU ARE WAITING FOR YOUR FOLLOW UP APPOINTMENT; EITHER CONTACT YOUR PRIMARY CARE DOCTOR, THE PHYSICIAN WHOSE NAME AND NUMBER YOU WERE GIVEN, OR RETURN TO THE ED IMMEDIATELY. Laceration Repair Lac Repair Indication: [] Left-sided forehead laceration Procedure: The patient was placed in the appropriate position and anesthesia around the laceration was achieved with 6 cc 1% lidocaine with epinephrine. The area was then cleansed with Betadine and normal saline, explored for foreign bodies, there were no foreign bodies appreciated.. The laceration was closed with underlying 2 interrupted sutures using 5-0 Vicryl to bring gaping laceration together, then closure completed with 12 each interrupted sutures using 6-0 nylon. The laceration repair site was dressed with double antibiotic ointment and Band-Aid. Total repaired wound length: 3.5 cm Other Items: [OTHER ITEMS] The patient tolerated the procedure well. Complications: There were no complications. Problem Qualifiers Primary Impression: Laceration of forehead, left, complicated Encounter type: initial encounter Qualified Codes: S01.81XA - Laceration without foreign body of other part of head, initial encounter Additional Impressions: Closed head injury Encounter type: initial encounter Qualified Codes: S09.90XA - Unspecified injury of head, initial encounter Fall from slip, trip, or stumble Encounter type: initial encounter Qualified Codes: W01.0XXA - Fall on same level from slipping, tripping and stumbling without subsequent striking against object, initial encounter CANDICE GALLARDO ENGINEER Jan 26, 2021 12:17
[2021-01-26] MEDS ORDERED: BACITRACIN ZINC TOPICAL OINT PACKET. TP ONE (12:30)
[2021-01-26] MEDS ORDERED: LIDOCAINE 1%/EPI 1:100,000 20 ML VIAL. IJ ONE (12:30)
[2021-01-26] MEDS ORDERED: DIPH,PERTUSS(ACELL),TET VAC/PF 0.5 ML SYRINGE. VAX IM ONE (12:45)
--- NOTE | 2021-01-26 12:47 | RAD ---
EXAM: CT head and cervical spine without contrast INDICATION: Blunt head trauma COMPARISON: CT head 05/25/2018 TECHNIQUE: Axial CT imaging through the head and cervical spine without intravenous contrast. Sagitta l and coronal reformats were obtained. One or more of the following individualized dose reduction techniques were utilized for this examinat ion: 1. Automated exposure control 2. Adjustment of the mA and/or kV according to patient size 3. Use of iterative reconstruction technique. FINDINGS: CT head: The ventricles and sulci are mildly enlarged, reflecting age-related volume loss. There is a mild bur den of periventricular and deep hypoattenuating white matter lesions. There is physiologic mineraliza tion in the basal ganglia. Lund-white matter differentiation is maintained. There is no intracranial hemorrhage, acute infarct, or mass lesion. Basal cisterns are clear. The calvarium is intact. The vis ualized paranasal sinuses and mastoid air cells are clear. Globes and orbits are intact. There is sof t tissue swelling and a laceration of the forehead on the left. CT cervical spine: No acute fracture. Alignment is normal. The craniocervical junction and atlantoaxial interval are marco ntained. There is mild disc space narrowing at C5-C6. Mild left foraminal narrowing at C5-C6. Mild fa cet arthrosis at C2-C3 and C3-C4. Prevertebral soft tissues normal. There is pleural parenchymal thic kening and soft calcifications in the lung apices, nonspecific. IMPRESSION: 1. No acute intracranial abnormality. 2. No acute osseous abnormality of the cervical spine. Electronically signed by: Joanna Neal MD (01/26/2021 12:45 PM) [id number]
[2021-01-26 14:51] VITALS: BP 171/82
== END 2021-01-26 14:58 | disposition home or self-care (01) ==
LOC: ER 10:45
DX: S01.81XA Laceration without foreign body of other part of head, initial encounter (principal); I10 Essential (primary) hypertension; E03.9 Hypothyroidism, unspecified; W01.190A Fall on same level from slipping, tripping and stumbling with subsequent striking against furniture, initial encounter; Y93.89 Activity, other specified; Y92.89 Other specified places as the place of occurrence of the external cause; Y99.8 Other external cause status
CPT/HCPCS: 12013; 70450; 72125; 90471; 90715; 99285-25

== ENCOUNTER → 2021-02-10 | Outpatient (CLI) | payer MEDICARE, OTHER ==
[2021-01-26 14:51] VITALS: BP 171/82
[~2021-02-10] MED LIST changes: +REGADENOSON 0.4 MG/5 ML DISP.SYRIN. IV ONE
--- NOTE | 2021-02-11 11:32 | RAD ---
MR#: [id number] Date of Study: 02/10/2021 Ordering Physician: MARILYNN PARK Referring Physician: HARRY CORRAL Tech: RT Alaina (R) (N) APPROVED REPORT Test Type: Pharmacological Stress Nurse/Tech: JESSIE/ROGE Test Indications: CARDIOMYOPATHY Cardiac History: See Electronic Medical Record Resting Heart Rate: 74 bpm Resting Blood Pressure: 159/65mmHg Pretest Chest Pain: None Pharm. Details Pharmacologic stress testing was performed using 0.4mg per 5ml of regadenoson given intravenously ove r 7-10 seconds. Stress Symptoms DYSPNEA POST EXERCISE Reason for Termination: Infusion complete Blood Pressure response to exercise: Normal blood pressure response during stress. Heart Rate response to exercise: INCTREASED Chest Pain: No. Arrhythmia: No. ST Change: No. INTERPRETATION Stress EKG Conclusion: Non-diagnostic EKG due to LBBB. Imaging Protocol IMAGE PROTOCOL: Rest Tc-99m/stress Tc-99m 1 day Rest: Stress: Viability: Radiopharm.Tc99m GooalcctwPu20c Sestamibi Eysr86hHw 31mCi Duration 15min. 15min. Img Date 02/10/2021 02/10/2021 Inj-Img Qbps84pwe. 60min. Rest Admin Site:IV - Right AntecubitalAdministrator: RT Alaina (R)(N) Stress Admin Site: IV - Right AntecubitalAdministrator: RT Alaina (R)(N) STRESS DATA End Diast. Vol.19.0mlAv. Heart Rate83.0bpm End Syst. Vol.2.0mlCO Index BSA0.0L/min Myocardial Mass56.0gEject. Qeqyvbqd80.0% Stress Rates Pk. Fill Rate6.56EDV/secLVtime Pk. Fill 142.16msec Pk. Empty Rate7.05ESV/secLVtime Pk. Bmjjd029.30msec 10/26 Pk. Fill2.16EDV/sec Stress Scores Regional WT3.00Summed WT22.00 Regional WM0.00Summed WM2.00 The rest and stress images show normal perfusion, normal contraction and thickening. LV Perf. Quant 17 Seg. SSS0.00 17 Seg. SRS0.00 17 Seg. SDS0.00 Stress Defect Extent (% LAD)0.00Rest Defect Extent (% LAD)0.00Rev. Defect Extent (% LAD)0.00 Stress Defect Extent (% LCX) 0.00Rest Defect Extent (% LCX)0.00Rev. Defect Extent (% LCX)0.00 Stress Defect Extent (% RCA)0.00Rest Defect Extent (% RCA)0.00Rev. Defect Extent (% RCA)0.00 Stress Defect Extent (% CROW)0.00Rest Defect Extent (% CROW)0.00Rev. Defect Extent (% CROW)0.00 Other Information Quality:Average Risk Assessment: Low Risk Conclusion 1. Non diagnostic EKG due to baseline LBBB. 2. Normal perfusion at stress/rest. 3. Low risk study. 4. EF > 60%. Signed by : Usama Moya, Electronically Approved : 02/11/2021 11:31:34
== END ==
LOC: NM 08:17
PROVIDERS: ATTEND Internal Medicine Cardiovascular Disease
DX: I42.9 Cardiomyopathy, unspecified (principal)
CPT/HCPCS: 78452; 93017; A9500; J2785

== ENCOUNTER 2021-02-23 16:24 | Emergency (ER) | payer MEDICARE, OTHER ==
[~2021-02-23] VITALS: Ht 157.5 cm; Wt 49.7 kg
[~2021-02-23 16:24] MED LIST changes: -REGADENOSON 0.4 MG/5 ML DISP.SYRIN. IV ONE
--- NOTE | 2021-02-23 17:17 | PHYS DOC ---
Past History Past Medical History: Asthma, COPD, Hypertension, Hypothyroid Additional Past Medical Histor: PVD (JOHNNY JOSÉ DO) Past Medical History: Asthma, COPD, Hypertension, Hypothyroid Past Medical History PVDz, (PAULETTE BLAKELY MD) Past Surgical History: Hysterectomy, Other (JOHNNY JOSÉ DO) Smoking: Non-smoker Alcohol Use: None Drug Use: None (JOHNNY JOSÉ DO) General Adult EDM: Chief Complaint: SHORTNESS OF BREATH HPI: HPI: 85-year-old female presents with shortness of breath. The patient was admitted to [facility] over the weekend and left yesterday. Family was advised to go by a pulse oximeter and monitor the patient's oxygen level. They diagnosed her with adult onset asthma or COPD. Patient has a 08-jkaz-ihma history. She was discharged with a prescription for nebulizer, albuterol, and budesonide. They are waiting for the nebulizer to come in the mail. At home, family was checking on the patient and checking her oxygen on both resting and with activity. Her levels with activity dipped into the 60s and the patient felt quite short of breath. Patient talked with her primary care provider about an appointment and she advised that they come to the ER. Patient denies fever chills. She has no significant pain. She had Covid 6 months ago and has been vaccinated fully since. (JOHNNY JOSÉ DO) Review of Systems: Review of Systems: Constitutional: Denies fever or chills Eyes: Denies change in visual acuity HENT: Denies nasal congestion or sore throat Respiratory: shortness of breath Cardiovascular: Denies chest pain or edema GI: Denies abdominal pain, nausea, vomiting, bloody stools or diarrhea : Denies dysuria Musculoskeletal: Denies back pain or joint pain Integument: Denies rash Neurologic: Denies headache, focal weakness or sensory changes Endocrine: Denies polyuria or polydipsia Lymphatic: Denies swollen glands Psychiatric: Denies depression or anxiety (JOHNNY JOSÉ DO) Allergies: Allergies: Allergies Coded Allergies Type Severity Reaction Last Updated Verified Sulfa (Sulfonamide Antibiotics) Allergy Intermediate 01/08/19 Yes amlodipine Allergy Intermediate Rash 01/08/19 Yes clindamycin Allergy Intermediate 01/08/19 Yes (JOHNNY JOSÉ DO) Physical Exam: PE: Constitutional: Well developed, well nourished, no acute distress, non-toxic appearance. [] HENT: Normocephalic, atraumatic, bilateral external ears normal, oropharynx moist, no oral exudates, nose normal. [] Eyes: PERRLA, EOMI, conjunctiva normal, no discharge. [] Neck: Normal range of motion, no tenderness, supple, no stridor. [] Cardiovascular: Heart rate regular rhythm, no murmur [] Lungs & Thorax: Bilateral breath sounds diminished but clear to auscultation [] Abdomen: Bowel sounds normal, soft, no tenderness, no masses, no pulsatile masses. [] Skin: Warm, dry, no erythema, no rash. [] Back: No tenderness, no CVA tenderness. [] Extremities: No tenderness, no cyanosis, no clubbing, ROM intact, no edema. [] Neurologic: Alert and oriented X 3, normal motor function, normal sensory function, no focal deficits noted. [] Psychologic: Affect normal, judgement normal, mood normal. [] (JOHNNY JOSÉ DO) Current Patient Data: Vital Signs: Vital Signs Date Time Temp Pulse Resp B/P (MAP) Pulse Ox O2 Delivery O2 Flow Rate FiO2 02/23/21 16:30 97.5 87 20 151/94 (113) 97 Room Air (JOHNNY JOSÉ DO) EKG: EKG: Sinus rhythm, leftward axis, intraventricular block, no ST elevation or depression. [] (JOHNNY JOSÉ DO) Radiology/Procedures: Radiology/Procedures: [] Impressions: Exam: Chest one view INDICATION: Shortness of breath TECHNIQUE: Frontal view of the chest Comparisons: 06/06/2020 FINDINGS: The cardiomediastinal silhouette and pulmonary vessels are within normal limits. The lung and pleural spaces are clear. IMPRESSION: No acute cardiopulmonary process. Electronically signed by: Tee Bailey MD (02/23/2021 5:20 PM) [facility] DICTATED AND SIGNED BY: TEE BAILEY MD DATE: 02/23/211716 CC: JOHNNY JOSÉ DO; ALENA HANEY ~MTH0 0 (JOHNNY JOSÉ DO) Heart Score: C/O Chest Pain: No Risk Factors: Risk Factors: DM, Current or recent (<one month) smoker, HTN, HLP, family history of CAD, obesity. Risk Scores: Score 0 - 3: 2.5% MACE over next 6 weeks - Discharge Home Score 4 - 6: 20.3% MACE over next 6 weeks - Admit for Clinical Observation Score 7 - 10: 72.7% MACE over next 6 weeks - Early Invasive Strategies (JOHNNY JOSÉ DO) Course & Med Decision Making: Course & Med Decision Making Pertinent Labs and Imaging studies reviewed. (See chart for details) Chest x-ray shows no significant acute findings. EKG has nonspecific block, leftward axis. The patient's other results are pending at this time. I am signing the patient out to Dr. Blakely at 1800. [] (JOHNNY JOSÉ DO) Course & Med Decision Making See Dr. José chart for detail prior shift change. CT angio of chest on no PE, findings consistent with COPD. Patient to take prednisone 50 mg daily for 5 days. Patient use MDI 2 puffs 4 times a day. Patient follow-up with primary care. Patient return if any concerns. Impression: 1. Hypoxia 2. COPD 3. Asthma HJx 4. Anemia 11.9 HGB 5. Elevate Esino- 10, Mono12, and low Lymph 15 6. Hx of COVID- 6 months ago 7. Elevated Creat 1.2 (PAULETTE BLAKELY MD) Dragon Disclaimer: Bhavesh Disclaimer: This electronic medical record was generated, in whole or in part, using a voice recognition dictation system. (JOHNNY JOSÉ DO) Departure Departure: Referrals: ALENA HANEY (PCP) Scripts Prednisone (PREDNISONE) 50 Mg Tablet 50 MG PO DAILY for reactive air way for 5 Days, #5 TAB Prov: PAULETTE BLAKELY MD 02/23/21 Apixaban (ELIQUIS) 2.5 Mg Tablet 2.5 MG PO BID for coag for 30 Days, #60 TAB Prov: PAULETTE BLAKELY MD 02/23/21 JOHNNY JOSÉ DO February 23, 2021 17:17 PAULETTE BLAKELY MD February 23, 2021 18:04
--- NOTE | 2021-02-23 17:23 | RAD ---
Exam: Chest one view INDICATION: Shortness of breath TECHNIQUE: Frontal view of the chest Comparisons: 06/06/2020 FINDINGS: The cardiomediastinal silhouette and pulmonary vessels are within normal limits. The lung and pleural spaces are clear. IMPRESSION: No acute cardiopulmonary process. Electronically signed by: Tee Banerjee MD (02/23/2021 5:20 PM) ANAM
[2021-02-23 17:40] LABS: BASO % 1 % (0-3); EOS # 0.7 x10^3/uL (0.0-0.7); EOS % 10 % (0-3); HEMATOCRIT 35.8 % (36.0-47.0); HEMOGLOBIN 11.9 g/dL (12.0-15.5); LYMPH # 1.1 x10^3/uL (1.0-4.8); LYMPH % 15 % (24-48); MEAN CORPUSCULAR HEMOGLOBIN 31 pg (25-35); MEAN CORPUSCULAR HGB CONC 33 g/dL (31-37); MEAN CORPUSCULAR VOLUME 92 fL (79-100); MONO # 0.9 x10^3/uL (0.0-1.1); MONO % 12 % (0-9); NEUT # 4.4 x10^3uL (1.8-7.7); NEUT % 62 % (31-73); PLATELET COUNT 232 x10^3/uL (140-400); RED BLOOD COUNT 3.87 x10^6/uL (3.50-5.40); RED CELL DISTRIBUTION WIDTH 14.2 % (11.5-14.5)
[2021-02-23 17:48] LABS: CREATININE 1.2 mg/dL (0.6-1.0); GFR 42.7; POTASSIUM 3.8 mmol/L (3.5-5.1)
[2021-02-23 18:00] LABS: ALBUMIN 3.2 g/dL (3.4-5.0); ALBUMIN/GLOBULIN RATIO 0.9 (1.0-1.7); TOTAL BILIRUBIN 0.3 mg/dL (0.2-1.0); TOTAL PROTEIN 6.7 g/dL (6.4-8.2)
[2021-02-23] MEDS ORDERED: IOHEXOL 350 MG/ML 100 ML VIAL. IV ONE (18:15)
[2021-02-23] MEDS ORDERED: methylPREDNISolone SOD SUCC PF 125 MG/2 ML VIAL. IV ONE (18:15)
[2021-02-23 19:15] LABS: BACTERIA,URINE FEW /HPF (0-FEW); BILIRUBIN,URINE NEG (NEG); CLARITY,URINE CLEAR; COLOR,URINE YELLOW; GLUCOSE,URINE NEG (NEG); NITRITE,URINE NEG (NEG); RBC,URINE 0 /HPF (0-2); SQUAMOUS EPITHELIAL CELL,UR OCC /LPF; UROBILINOGEN,URINE 0.2 mg/dL (0.2 mg/dL); WBC,URINE OCC /HPF (0-4)
[2021-02-23 19:26] VITALS: BP 159/59
[2021-02-23] MEDS ORDERED: ALBUTEROL SULFATE 8GM INHALER. INH ONE ×2 (19:45→20:00)
[2021-02-23] MEDS ORDERED: PRED50TA PO (19:47)
[2021-02-23] MEDS ORDERED: APIX2.5T PO (19:47)
[2021-02-23] MEDS ORDERED: APIXABAN 5 MG TABLET. PO STA (19:48)
--- NOTE | 2021-02-23 21:42 | EKG ---
[address] [address] Test Date: 2021-02-23 Test Time: 17:25:54 Pat Name: JUAN DANIEL THOMAS Department: Room: Gender: F Head Stock Operator: KIMBERLYN : 1935 Requested By: JOHNNY JOSÉ Order Number: [id number] Reading MD: Measurements Intervals [place] Rate: 84 P: 41 [place]: 190 QRS: -15 QRSD: 130 T: 72 QT: 412 QTc: 490 Interpretive Statements SINUS RHYTHM LEFTWARD AXIS NON SPECIFIC INTRAVENTRICULAR BLOCK QRS(T) CONTOUR ABNORMALITY CONSIDER ANTEROSEPTAL MYOCARDIAL DAMAGE ABNORMAL ECG RI6.02 No previous ECG available for comparison
== END 2021-02-23 20:15 | disposition home or self-care (01) ==
LOC: ER 16:24
DX: J44.9 Chronic obstructive pulmonary disease, unspecified (principal); R09.02 Hypoxemia; D64.9 Anemia, unspecified; D72.821 Monocytosis (symptomatic); R79.89 Other specified abnormal findings of blood chemistry; I10 Essential (primary) hypertension; E03.9 Hypothyroidism, unspecified; Z86.16 Personal history of COVID-19; Z88.2 Allergy status to sulfonamides; Z88.1 Allergy status to other antibiotic agents; Z88.8 Allergy status to other drugs, medicaments and biological substances
CPT/HCPCS: 36415; 71045; 80053; 81001; 83880; 84484; 85025; 85379; 85610; 85730; 87086; 93005; 94640; 96374; 99285; J2930; 94664

== ENCOUNTER → 2021-02-27 | Outpatient (CLI) | payer MEDICARE, OTHER ==
[2021-02-23 19:26] VITALS: BP 159/59
[~2021-02-27] MED LIST changes: +APIX2.5T PO; +PRED50TA PO
--- NOTE | 2021-03-04 10:47 | RAD ---
DATE: February 27, 2021 EXAM: DIGITAL SCREEN BILAT W/CAD HISTORY: Screening study. COMPARISON: 2017 through 2019 This study was interpreted with the benefit of Computerized Aided Detection (CAD). FINDINGS: Breast Density: HETERO The breast parenchyma is heterogenously dense, which could reduce sensitivity of mammography. Breast parenchyma level C.. There are no dominant suspicious masses, suspicious microcalcifications or evidence of architectural distortion. IMPRESSION: No mammographic indicators for malignancy. BI-RADS CATEGORY: 1 NEGATIVE RECOMMENDED FOLLOW-UP: 12M 12 MONTH FOLLOW-UP PQRS compliance statement: Patient information was entered into a reminder system with a target due date February 28, 2022 for the next mammogram. Mammography is a sensitive method for finding small breast cancers, but it does not detect them all and is not a substitute for careful clinical examination. A negative mammogram does not negate a clinically suspicious finding and should not result in delay in biopsying a clinically suspicious abnormality. "Our facility is accredited by the [employer] Mammography [employer]." The patient's breast density may affect the ability of mammography to detect breast cancer. There are 4 categories of breast density, A, B, C and D. Breast density A means that most of the breast tissue is replaced with adipose tissue and therefore is not dense. Breast density B means that the breast tissue is mildly dense and scattered. Breast density C means that the breast tissue is heterogeneously dense. Breast density D means that the breast tissue is very dense. Breast densities especially C and D may decrease the sensitivity of mammography to detect breast cancer. Therefore, the patient may benefit from 3-D breast mammography (3D breast tomography) as a part of their screening mammogram. Insurance may or may not pay for this additional imaging. The patient's breast density based on today's mammogram is category C.
== END ==
LOC: MAMMO 15:12
PROVIDERS: ATTEND Physician Assistant Medical
DX: Z12.31 Encounter for screening mammogram for malignant neoplasm of breast (principal)
CPT/HCPCS: 77067

== ENCOUNTER → 2021-04-15 | Outpatient (CLI) | payer MEDICARE, OTHER ==
--- NOTE | 2021-04-15 15:36 | RAD ---
Bilateral lower extremity arterial duplex ultrasound study without comparison for peripheral arterial disease, hypertension, history of smoking. TECHNIQUE: Real-time grayscale and color and spectral Doppler evaluation of the arteries of lower ext remity is performed. FINDINGS: There is bulky calcified atherosclerosis throughout all distributions. The right common fem oral, superficial femoral, and popliteal arteries appear patent with biphasic flow and no focal veloc ity elevations. Proximal right posterior tibial artery is patent and monophasic, however the distal r ight posterior tibial artery is occluded. There is biphasic flow within the peroneal, anterior tibial , and dorsalis pedis arteries, though flow in the peroneal artery is slow. On the left, there is vang ncy of the common femoral, superficial femoral, and popliteal arteries, with markedly elevated veloci ties in the common femoral artery consistent with hemodynamically significant focal stenosis. Biphasi c flow within the peroneal, anterior tibial, and dorsalis pedis arteries, with occlusion of the entir e posterior tibial artery. IMPRESSION: 1. Moderate multifocal calcified atherosclerosis with hemodynamically significant stenosis within the left common femoral artery, and bilateral posterior tibial artery occlusions. Electronically signed by: Yonny Avendaño MD (04/15/2021 3:34 PM) [id number]
== END ==
LOC: US 14:29
PROVIDERS: ATTEND Physician Assistant Medical
DX: I70.202 Unspecified atherosclerosis of native arteries of extremities, left leg (principal); I10 Essential (primary) hypertension; Z87.891 Personal history of nicotine dependence
CPT/HCPCS: 93925

== ENCOUNTER 2021-06-30 11:03 | Emergency (ER) | payer MEDICARE, OTHER ==
[~2021-06-30] VITALS: Ht 149.9 cm; Wt 48.0 kg
--- NOTE | 2021-06-30 12:11 | EKG ---
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
[2021-06-30] MEDS ORDERED: IOHEXOL 350 MG/ML 100 ML VIAL. IV ONE (12:15)
[2021-06-30] MEDS ORDERED: CONTRAST GIVEN. MC PRN (12:15)
--- NOTE | 2021-06-30 12:25 | PHYS DOC ---
Past History Past Medical History: Asthma, COPD, Hypertension, Hypothyroid Additional Past Medical Histor: PVD Past Surgical History: Hysterectomy Smoking: Non-smoker Alcohol Use: None Drug Use: None Adult General Chief Complaint Chief Complaint: GROIN PAIN HPI HPI Patient is a 85-year-old female presenting with daughter for right lower extremity paresthesias. 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 Patient had recent heart catheterization performed at by Dr. PARK 4 days prior with access point being right groin. Since that time, patient reports development of a small hematoma in right groin with numbness and tingling that was initially present on anterior right thigh but mostly focal to right foot. Reports pain that is worsened with physical exertion. Otherwise, just cites numbness and tingling of right foot versus contralateral limb. Review of Systems Review of Systems Fourteen body systems of review of systems have been reviewed. See HPI for pertinent positives and negative responses, other hamilton all other systems are negative, non-pertinent or non-contributory Current Medications Current Medications Current Medications Medications (Trade) Dose Ordered Sig/Aylin Start Time Stop Time Status Last Admin Dose Admin Info (Do NOT chart on this entry -- for MONITORING) 1 each PRN DAILY PRN 06/30/21 12:15 07/02/21 12:14 Iohexol (Omnipaque 350 Mg/ml) 100 ml 1X ONCE 06/30/21 12:15 06/30/21 12:16 DC Allergies Allergies Allergies Coded Allergies Type Severity Reaction Last Updated Verified Sulfa (Sulfonamide Antibiotics) Allergy Intermediate 01/08/19 Yes amlodipine Allergy Intermediate Rash 01/08/19 Yes clindamycin Allergy Intermediate 01/08/19 Yes Physical Exam Physical Exam Constitutional: Well developed, well nourished, no acute distress, non-toxic appearance. HENT: Normocephalic, atraumatic, bilateral external ears normal, oropharynx moist, no oral exudates, nose normal. Eyes: PERRLA, EOMI, conjunctiva normal, no discharge. Neck: Normal range of motion, no tenderness, supple, no stridor. Cardiovascular: Heart rate regular, sinus rhythm, there is a 3+ holosystolic murmur Lungs & Thorax: Bilateral breath sounds clear to auscultation Abdomen: Bowel sounds normal, soft, no tenderness, no masses, no pulsatile masses. Nonsurgical abdomen, no peritoneal signs Skin: Warm, dry, no erythema, no rash. Right groin ecchymosis consistent with recent heart catheterization procedure Back: No tenderness, no CVA tenderness. Extremities: No tenderness, no cyanosis, no clubbing, ROM intact, no edema. Patient does have hyperpigmentation of bilateral lower extremities. Patient has no palpable pulses to DP/TP of right foot, minimal Doppler pulse present of TP but not DP of right foot that is grossly cooler to the touch versus contralateral limb Neurologic: Alert and oriented X 3, motor function fully intact of bilateral lower extremities, patient has decreased sensation to right foot versus contralateral limb, no focal deficits noted. Psychologic: Affect normal, judgement normal, mood normal. Current Patient Data Vital Signs Vital Signs Date Time Temp Pulse Resp B/P (MAP) Pulse Ox O2 Delivery O2 Flow Rate FiO2 06/30/21 11:14 98.2 95 14 134/69 98 Room Air Lab Results Laboratory Tests Test 06/30/21 12:00 White Blood Count 8.4 x10^3/uL Red Blood Count 3.66 x10^6/uL Hemoglobin 10.7 g/dL Hematocrit 32.7 % Mean Corpuscular Volume 89 fL Mean Corpuscular Hemoglobin 29 pg Mean Corpuscular Hemoglobin Concent 33 g/dL Red Cell Distribution Width 14.5 % Platelet Count 180 x10^3/uL Neutrophils (%) (Auto) 75 % Lymphocytes (%) (Auto) 9 % Monocytes (%) (Auto) 12 % Eosinophils (%) (Auto) 4 % Basophils (%) (Auto) 0 % Neutrophils # (Auto) 6.3 x10^3uL Lymphocytes # (Auto) 0.8 x10^3/uL Monocytes # (Auto) 1.0 x10^3/uL Eosinophils # (Auto) 0.3 x10^3/uL Basophils # (Auto) 0.0 x10^3/uL Prothrombin Time 10.0 SEC Prothromb Time International Ratio 1.0 Activated Partial Thromboplast Time 28 SEC Sodium Level 136 mmol/L Potassium Level 3.8 mmol/L Chloride Level 100 mmol/L Carbon Dioxide Level 26 mmol/L Anion Gap 10 Blood Urea Nitrogen 14 mg/dL Creatinine 1.2 mg/dL Estimated GFR (Cockcroft-Gault) 42.7 BUN/Creatinine Ratio 12 Glucose Level 149 mg/dL Calcium Level 8.5 mg/dL Total Bilirubin 0.5 mg/dL Aspartate Amino Transf (AST/SGOT) 23 U/L Alanine Aminotransferase (ALT/SGPT) 25 U/L Alkaline Phosphatase 60 U/L Troponin I Quantitative < 0.017 ng/mL Total Protein 5.8 g/dL Albumin 3.0 g/dL Albumin/Globulin Ratio 1.1 Current Medications Medications (Trade) Dose Ordered Sig/Aylin Route PRN Reason Start Time Stop Time Status Last Admin Dose Admin Iohexol (Omnipaque 350 Mg/ml) 100 ml 1X ONCE IV 06/30/21 12:15 06/30/21 12:16 DC 06/30/21 12:24 Info (Do NOT chart on this entry -- for MONITORING) 1 each PRN DAILY PRN MC SEE COMMENTS 06/30/21 12:15 07/02/21 12:14 Heparin Sodium/ Dextrose 250 ml @ 0 mls/hr CONT PRN IV SEE I/O RECORD 06/30/21 15:30 UNV Heparin Sodium (Porcine) (Heparin Sodium) 2,900 unit 1X ONCE IV 06/30/21 15:30 06/30/21 15:31 UNV Heparin Sodium (Porcine) (Heparin Sodium) 1,200 unit PRN Q6HRS PRN IV FOR PTT LESS THAN 24 SECONDS 06/30/21 15:30 UNV EKG EKG EKG interpreted by myself 9 hours as sinus rhythm at 85 bpm, QRS 126 and QTC 486 otherwise unremarkable intervals, left axis deviation, T wave inversion in lead aVL, no STEMI Radiology/Procedures Radiology/Procedures CTA of the abdomen and pelvis to include bilateral lower extremity arterial runoff study 06/30/2021 CLINICAL HISTORY: Right leg pain and paresthesias. Recent right heart catheterization. TECHNIQUE: After the intravenous administration of 75 cc of Omnipaque 350, contiguous, 0.625 mm axial sections were obtained through the abdomen and pelvis to include both lower extremities. 2 mm reconstructed axial and 3-D MIP sagittal and coronal along with volume rendered 3-D reconstructed images were obtained. FINDINGS: Comparison is made to patient's bilateral lower extremity arterial duplex study dated 04/15/2021. Images through the lung bases demonstrate mild cardiomegaly. A 6 mm calcified granuloma is seen involving the right lower lobe. Minimal dependent subsegmental atelectasis is seen involving both lower lobes. The liver parenchyma has a decreased attenuation consistent with fatty infiltration. The spleen, pancreas, adrenal glands and kidneys are within normal limits. A 1.2 cm noncalcified gallstone is seen within the dependent portion of the gallbladder. No free fluid or free air is within the abdomen. There is no evidence of bowel obstruction. The appendix is well-visualized and is within normal limits. Images through the pelvis demonstrate the urinary bladder distended with urine. Diverticula are seen involving the sigmoid colon. No inflammatory changes are seen adjacent fat. No free fluid is seen. Mild S-shaped curvature of the thoracolumbar spine is seen. Degenerative changes are seen involving the lower thoracic and throughout the lumbar spine along with both hips. CTA images demonstrate moderate to severe atherosclerotic plaque formation involving the abdominal aorta and its branches. The abdominal aorta is tortuous but tapers normally. Solitary renal arteries are seen bilaterally which appear patent. The origins of the celiac trunk and superior mesenteric artery are patent. The inferior mesenteric artery is small. Its origin is difficult to visualize. Moderate atherosclerotic plaque formation is seen involving common iliac arteries and their branches. A 50 percent stenosis is seen involving the distal right external iliac artery. As measures 2 mm in length. Focal occlusion of the right common femoral artery is seen. The right profunda femoral artery and proximal right superficial femoral artery reconstitute via collaterals. The thrombosed segment of the right common femoral artery/proximal right superficial femoral artery measures 4.5 cm in length. Increased attenuation is seen within the fat surrounding the right common femoral artery and proximal right superficial femoral artery consistent with hemorrhage related to patient's recent catheterization. No well-defined hematoma is seen. The right superficial femoral artery is irregular with multiple stenoses which measure 50- 75 percent seen throughout its course. The right popliteal artery is small and irregular. Several stenoses of 50-75 percent are seen throughout its course. A greater than 80 percent stenosis is seen involving the distal right popliteal artery. This measures 1.5 cm in length. The origin of the right anterior tibial artery is patent. The origins of the tibial peroneal, peroneal and posterior tibial arteries are patent. The right anterior tibial artery is small but is patent to the level of the right ankle/proximal right foot. The right peroneal artery is small but enhances with contrast extending to the right ankle. The posterior tibial artery is largely occluded throughout its course. The right dorsalis pedis artery and posterior tibial arteries do not enhance with contrast with the visualized portions of the right foot. Extensive atherosclerotic plaque formation is seen involving the left common femoral artery and its branches. The left profunda femoral artery is patent. The left superficial femoral artery is small and irregular. Stenoses of 50-75 percent are seen scattered throughout its course. The left popliteal artery is small and irregular. Several 50 percent stenoses are seen scattered throughout its course. The origins of the left anterior tibial, tibial peroneal, peroneal and posterior tibial arteries are patent. The left anterior tibial artery en hances with contrast extending to the left ankle. Faint contrast enhancement of the left dorsalis pedis artery is seen. The left peroneal artery is small but enhances with contrast extending to the left ankle. The left posterior tibial artery is largely occluded throughout its course. IMPRESSION: 1. Focal occlusion of the right common femoral artery and proximal right superficial femoral artery. 2. Moderate to severe atherosclerotic plaque formation is seen involving the abdominal aorta and its branches. The superficial femoral arteries are irregular with multiple stenoses seen which measure 50-75 percent. Stenoses of 50-75 percent are seen involving both popliteal arteries. A greater than 80 percent stenosis is seen involving the distal right popliteal artery. The posterior tibial arteries are largely occluded throughout their course bilaterally. Electronically signed by: Filiberto Michaud MD (06/30/2021 2:00 PM) [id number] Heart Score C/O Chest Pain: No HEART Score for Chest Pain: HEART Score for Chest Pain Response (Comments) Value History Slighlty/Non-Suspicious 0 ECG Normal 0 Age > 65 2 Risk Factors >3 Risk Factors or Hx CAD 2 Troponin < Normal Limit 0 Total 4 Risk Factors: Risk Factors: DM, Current or recent (<one month) smoker, HTN, HLP, family history of CAD, obesity. Risk Scores: Risk Factors: DM, Current or recent (<one month) smoker, HTN, HLP, family history of CAD, obesity. Course & Med Decision Making Course & Med Decision Making Airway patent, breathing unlabored, IV access and vitals obtained with circulatory concerns of right foot due to the absent pulses with palpation, minimal appreciation of a pulse via Doppler History, physical examination and comprehensive ER work-up concerning for age indeterminant right common femoral artery occlusion with paresthesias and increased pain with physical exertion Heparin drip started despite patient being on Eliquis and aspirin daily status post recent heart catheter procedure 06/26/2021 On-call trapper bird, interventional radiologist and subsequent vascular surgeon services consulted and all in agreement for hospital transfer to [facility] under the care of Dr. Woody for higher acuity of care and likely surgical intervention of right lower extremity I updated patient and daughter at bedside on proposed plan of care that included hospital transfer, they were amenable. All questions and concerns addressed prior to ER departure Critical Care Time This patient required critical care. Due to the fact that the patient required a significant amount of one on one physician - patient contact time, ordering and review of studies, arranging urgent treatment with development of a management plan, evaluation of patients response to treatment with frequent reassessments, and discussions with other providers this patient required 35 minutes of critical care time. Critical care time was indicated due to the inherent i nstability and/or potential for instability in this patient. The critical care time that is allocated to this patient is above and beyond any time spent on any other billable procedures performed on this patient. Dragon Disclaimer Dragon Disclaimer This electronic medical record was generated, in whole or in part, using a voice recognition dictation system. Departure Departure: Impression: Primary Impression: Femoral artery occlusion, right Disposition: 02 ([facility]) Admitting Physician: Other (DR. WOODY) Condition: STABLE Referrals: ALENA HANEY (PCP) JAY DA SILVA DO Jun 30, 2021 12:25
[2021-06-30 12:29] LABS: BASO % 0 % (0-3); EOS # 0.3 x10^3/uL (0.0-0.7); EOS % 4 % (0-3); HEMATOCRIT 32.7 % (36.0-47.0); HEMOGLOBIN 10.7 g/dL (12.0-15.5); LYMPH # 0.8 x10^3/uL (1.0-4.8); LYMPH % 9 % (24-48); MEAN CORPUSCULAR HEMOGLOBIN 29 pg (25-35); MEAN CORPUSCULAR HGB CONC 33 g/dL (31-37); MEAN CORPUSCULAR VOLUME 89 fL (79-100); MONO % 12 % (0-9); NEUT # 6.3 x10^3uL (1.8-7.7); NEUT % 75 % (31-73); PLATELET COUNT 180 x10^3/uL (140-400); RED BLOOD COUNT 3.66 x10^6/uL (3.50-5.40); RED CELL DISTRIBUTION WIDTH 14.5 % (11.5-14.5); WHITE BLOOD COUNT 8.4 x10^3/uL (4.0-11.0)
[2021-06-30 12:41] LABS: ALBUMIN/GLOBULIN RATIO 1.1 (1.0-1.7); CALCIUM 8.5 mg/dL (8.5-10.1); GFR 42.7; POTASSIUM 3.8 mmol/L (3.5-5.1); TOTAL BILIRUBIN 0.5 mg/dL (0.2-1.0); TOTAL PROTEIN 5.8 g/dL (6.4-8.2)
[2021-06-30 12:44] LABS: CREATININE 1.2 mg/dL (0.6-1.0)
--- NOTE | 2021-06-30 14:02 | RAD ---
CTA of the abdomen and pelvis to include bilateral lower extremity arterial runoff study 06/30/2021 CLINICAL HISTORY: Right leg pain and paresthesias. Recent right heart catheterization. TECHNIQUE: After the intravenous administration of 75 cc of Omnipaque 350, contiguous, 0.625 mm axial sections were obtained through the abdomen and pelvis to include both lower extremities. 2 mm recons tructed axial and 3-D MIP sagittal and coronal along with volume rendered 3-D reconstructed images we re obtained. FINDINGS: Comparison is made to patient's bilateral lower extremity arterial duplex study dated 2020. Images through the lung bases demonstrate mild cardiomegaly. A 6 mm calcified granuloma is seen invol ving the right lower lobe. Minimal dependent subsegmental atelectasis is seen involving both lower lo bes. The liver parenchyma has a decreased attenuation consistent with fatty infiltration. The spleen, panc reas, adrenal glands and kidneys are within normal limits. A 1.2 cm noncalcified gallstone is seen within the dependent portion of the gallbladder. No free flui d or free air is within the abdomen. There is no evidence of bowel obstruction. The appendix is well- visualized and is within normal limits. Images through the pelvis demonstrate the urinary bladder distended with urine. Diverticula are seen involving the sigmoid colon. No inflammatory changes are seen adjacent fat. No free fluid is seen. Mild S-shaped curvature of the thoracolumbar spine is seen. Degenerative changes are seen involving t he lower thoracic and throughout the lumbar spine along with both hips. CTA images demonstrate moderate to severe atherosclerotic plaque formation involving the abdominal ao rta and its branches. The abdominal aorta is tortuous but tapers normally. Solitary renal arteries ar e seen bilaterally which appear patent. The origins of the celiac trunk and superior mesenteric arter y are patent. The inferior mesenteric artery is small. Its origin is difficult to visualize. Moderate atherosclerotic plaque formation is seen involving common iliac arteries and their branches. A 50 pe rcent stenosis is seen involving the distal right external iliac artery. As measures 2 mm in length. Focal occlusion of the right common femoral artery is seen. The right profunda femoral artery and pro ximal right superficial femoral artery reconstitute via collaterals. The thrombosed segment of the ri ght common femoral artery/proximal right superficial femoral artery measures 4.5 cm in length. Increa sed attenuation is seen within the fat surrounding the right common femoral artery and proximal right superficial femoral artery consistent with hemorrhage related to patient's recent catheterization. N o well-defined hematoma is seen. The right superficial femoral artery is irregular with multiple sten oses which measure 50-75 percent seen throughout its course. The right popliteal artery is small and irregular. Several stenoses of 50-75 percent are seen throughout its course. A greater than 80 percen t stenosis is seen involving the distal right popliteal artery. This measures 1.5 cm in length. The o rigin of the right anterior tibial artery is patent. The origins of the tibial peroneal, peroneal and posterior tibial arteries are patent. The right anterior tibial artery is small but is patent to the level of the right ankle/proximal right foot. The right peroneal artery is small but enhances with c ontrast extending to the right ankle. The posterior tibial artery is largely occluded throughout its course. The right dorsalis pedis artery and posterior tibial arteries do not enhance with contrast wi th the visualized portions of the right foot. Extensive atherosclerotic plaque formation is seen involving the left common femoral artery and its b ranches. The left profunda femoral artery is patent. The left superficial femoral artery is small and irregular. Stenoses of 50-75 percent are seen scattered throughout its course. The left popliteal ar falguni is small and irregular. Several 50 percent stenoses are seen scattered throughout its course. Th e origins of the left anterior tibial, tibial peroneal, peroneal and posterior tibial arteries are pa tent. The left anterior tibial artery enhances with contrast extending to the left ankle. Faint contr ast enhancement of the left dorsalis pedis artery is seen. The left peroneal artery is small but enha nces with contrast extending to the left ankle. The left posterior tibial artery is largely occluded throughout its course. IMPRESSION: 1. Focal occlusion of the right common femoral artery and proximal right superficial femoral artery. 2. Moderate to severe atherosclerotic plaque formation is seen involving the abdominal aorta and its branches. The superficial femoral arteries are irregular with multiple stenoses seen which measure 50 -75 percent. Stenoses of 50-75 percent are seen involving both popliteal arteries. A greater than 80 percent stenosis is seen involving the distal right popliteal artery. The posterior tibial arteries a re largely occluded throughout their course bilaterally. Electronically signed by: Filiberto Michaud MD (06/30/2021 2:00 PM) [facility]
[2021-06-30] MEDS ORDERED: HEPARIN 25,000UTS/250ML PREMIX 250 ML IV PRN (15:30)
[2021-06-30] MEDS ORDERED: HEPARIN for IV BOLUS 10,000 UNIT/10 ML VIAL. IV PRN (15:30)
[2021-06-30] MEDS ORDERED: HEPARIN for IV BOLUS 10,000 UNIT/10 ML VIAL. IV ONE (15:30)
[2021-06-30 15:45] VITALS: BP 138/63
== END 2021-06-30 16:20 | disposition short-term general hospital (02) ==
LOC: ER 11:03
DX: I70.8 Atherosclerosis of other arteries (principal); J44.9 Chronic obstructive pulmonary disease, unspecified; I10 Essential (primary) hypertension; E03.9 Hypothyroidism, unspecified; Z88.2 Allergy status to sulfonamides; Z88.1 Allergy status to other antibiotic agents; Z88.8 Allergy status to other drugs, medicaments and biological substances
CPT/HCPCS: 36415; 75635; 80053; 84484; 85025; 85610; 85730; 93005; 96374; 99291; J1644; Q9967; 99285-25

== ENCOUNTER → 2021-09-24 | Outpatient (CLI) | payer MEDICARE, OTHER ==
--- NOTE | 2021-09-24 17:43 | RAD ---
US DPLX CAROTID BILAT History: Reason: BILAT CAROTID BRUITS, HTN, HX OF SMOKING / Spl. Instructions: / History: COMPARISON: None Technique: Duplex sonography of the cervical portion of both carotid arteries was performed. Real-evette e grayscale, color flow Doppler, and Doppler spectral waveform analysis is performed. PQRS Compliance Statement - Stenosis calculations for CT, MR and conventional angiography are based u roxana measurement of the distal ICA diameter in accordance with the NASCET methodology. Stenosis calcu lations for carotid ultrasound studies are derived from validated velocity criteria which are known t o correlate with the NASCET methodology. Findings: Right side: Peak systolic flow velocity of the CCA is 159 cm/sec. Peak systolic flow velocity of the ICA is 212 cm/sec. The ICA/CCA ratio is 1.33. Peak end diastolic flow velocity of the ICA is 33 cm/sec. The peak systolic velocity of the ECA is 120 cm/sec. Moderate atheromatous plaque. Left side: Peak systolic flow velocity of the CCA is 147 cm/sec. Peak systolic flow velocity of the ICA is 141 cm/sec. The ICA/CCA ratio is 0.95. Peak end diastolic flow velocity of the ICA is 32 cm/sec. Peak systolic flow velocity of the ECA is 122 cm/sec. Moderate atheromatous plaque. Vertebral arteries: Bilateral vertebral arteries demonstrate antegrade flow. IMPRESSION: 1. Elevated velocity within the bilateral internal carotid arteries, may indicate 50-69 percent sten osis. 2. Moderate bilateral atheromatous plaque. Electronically signed by: Herberth Smith DO (09/24/2021 5:40 PM) [id number]
== END ==
LOC: US 10:02
PROVIDERS: ATTEND Registered Nurse Medical-Surgical
DX: I65.23 Occlusion and stenosis of bilateral carotid arteries (principal); I70.90 Unspecified atherosclerosis; I73.9 Peripheral vascular disease, unspecified; I10 Essential (primary) hypertension; F17.210 Nicotine dependence, cigarettes, uncomplicated
CPT/HCPCS: 93880

== ENCOUNTER 2022-02-24 11:10 | Emergency (ER) | payer MEDICARE, OTHER ==
[~2022-02-24] VITALS: Ht 149.9 cm; Wt 47.6 kg
--- NOTE | 2022-02-24 11:25 | PHYS DOC ---
Past History Past Medical History: Asthma, COPD, Hypertension, Hypothyroid Additional Past Medical Histor: PVD Past Surgical History: Hysterectomy Smoking: Non-smoker Alcohol Use: None Drug Use: None General Adult EDM: Chief Complaint: MECHANICAL FALL HPI: HPI: Patient is a 86-year-old female coming in from home for 2 falls this morning. Patient states that over the past 2 days she has had right-sided weakness that comes and goes. Patient states that she was able to ambulate without difficulty did not feel any weakness last night when she went to bed at 2100. Patient states she woke up at 0100 and has had 2 falls since then due to weakness. Patient states she feels lightheaded and dizzy prior to the falls. Patient denies any bleeding. States she is taking aspirin and Plavix but unsure why. Patient is right-handed. Review of Systems: Review of Systems: All other systems within normal limits except for as noted in the HPI Allergies: Allergies: Allergies Coded Allergies Type Severity Reaction Last Updated Verified Sulfa (Sulfonamide Antibiotics) Allergy Intermediate 01/08/19 Yes amlodipine Allergy Intermediate Rash 01/08/19 Yes clindamycin Allergy Intermediate 01/08/19 Yes Physical Exam: PE: Constitutional: Well developed, well nourished, no acute distress, non-toxic appearance. [] HENT: Normocephalic, atraumatic, bilateral external ears normal, nose normal. [] Eyes: PERRLA, conjunctiva normal, no discharge. [] Neck: No rigidity, supple, no stridor. [] Cardiovascular: Regular rate and rhythm, brisk cap refill [] Lungs & Thorax: Non labored symmetric respirations, no tachypnea or respiratory distress [] Abdomen: Soft, nondistended. Skin: Warm, dry, no erythema, no rash. [] Back: Unremarkable Extremities: No deformities, range of motion grossly intact, no lower extremity edema [] Neurologic: Alert and oriented X 3, right upper and lower extremity strength 4 out of 5, left upper and lower extremity strength 5 out of 5, cranial nerves II through XII intact Psychologic: Affect normal, judgement normal, mood normal. [] EKG: EKG: Sinus rhythm, heart rate 78 bpm, left axis deviation, no STEMI. [] Radiology/Procedures: Radiology/Procedures: [address] [address] IMAGING REPORT Signed PATIENT: JUAN DANIEL THOMAS ACCOUNT: [id number] : 1935 LOCATION: ER AGE: 86 SEX: F EXAM STATUS: REG ER ORD. PHYSICIAN: JOANNA SUERO MD REASON: right upper and lower weakness-75 ML OMNI 350 PROCEDURE: CT ANGIOGRAPHY HEAD AND NECK CTA HEAD AND NECK W/WO CONTRAST History:Reason: right upper and lower weakness Technique: After administration of 75 mL Omnipaque 350 intravenous contrast, volumetric CT data acquisition was acquired of the head and neck. Multiplanar reconstruction images to include MIP and 3-D reconstruction images are submitted. Exposure: One or more of the following individualized dose reduction techniques were utilized for this examination: 1. Automated exposure control 2. Adjustment of the mA and/or kV according to patient size 3. Use of iterative reconstruction technique. Comparison: None Any determination of stenosis is based on NASCET criteria. Head CTA: ICA: No stenosis, occlusion or aneurysm. MCA: No stenosis, occlusion or aneurysm. ANNIA: There is either a hypoplastic A1 segment of the right anterior cerebral artery or chronic appearing severe stenosis or focal occlusion of the A1 segment of the right anterior cerebral artery with retrograde flow from the anterior commuting artery. The A2 segment is normally opacified. The left anterior cerebral arteries are patent and normal in caliber. [employer]: No stenosis, occlusion or aneurysm. Basilar artery: No stenosis, occlusion or aneurysm. Distal vertebral arteries: No stenosis, occlusion or aneurysm. CT angiogram neck: Aortic arch: There is 60 percent narrowing of the brachiocephalic artery origin over a 1 cm segment due to atheromatous plaque. No significant narrowing of the left common carotid or subclavian arteries. Mild calcified and noncalcified atherosclerosis. Common carotid arteries: No stenosis, occlusion or dissection. Internal carotid arteries: 40 percent narrowing of the origin and proximal right ICA to to atherosclerosis. 20 percent narrowing of the proximal left internal carotid artery due to calcifications. External carotid arteries: Patent Vertebral arteries: No stenosis, occlusion or dissection. Imaged lung apices are unremarkable. There is a 2.2 x 1.0 cm hypodense structure along the right maxilla that is most likely some kind of dental implant (image 76, series 4) Bones: Mild superior compression deformities at T4, T5, and T6, likely old. IMPRESSION: 1. Hypoplastic A1 segment of the right ANNIA versus chronic appearing severe stenosis of focal occlusion of the A1 segment of the right ANNIA with retrograde flow from the anterior communicating artery. 2. 40 percent percent narrowing at the proximal right ICA and 20 percent narrowing of the proximal left ICA. FOR INTERNAL CODING PURPOSES Critical result: Findings discussed with JOANNA SUERO MD at 02/24/2022 12:11 PM. RESULT CODE: (C) Electronically signed by: Joanna Neal MD (02/24/2022 12:15 PM) [id number] DICTATED AND SIGNED BY: JOANNA NEAL MD DATE: 02/24/22 115 CC: JOANNA SUERO MD; ALENA HANEY ~ [][place] [address] IMAGING REPORT Signed PATIENT: JUAN DANIEL THOMAS ACCOUNT: [id number] : 1935 LOCATION: ER AGE: 86 SEX: F EXAM STATUS: REG ER ORD. PHYSICIAN: JOANNA SUERO MD REASON: right upper and lower weakness PROCEDURE: CT CODE STROKE HEAD WO EXAM: CT head without contrast INDICATION: Right upper and lower extremity weakness COMPARISON: CT head 01/26/2021 TECHNIQUE: Axial CT imaging through the head without intravenous contrast. Sagittal and coronal reformats were obtained. One or more of the following individualized dose reduction techniques were utilized for this examination: 1. Automated exposure control 2. Adjustment of the mA and/or kV according to patient size 3. Use of iterative reconstruction technique. FINDINGS: The ventricles and sulci are mildly enlarged. There is mild periventricular and deep white matter hypoattenuation. There is physiologic mineralization in the basal ganglia, unchanged. No intracranial hemorrhage, acute infarct, or mass les ion. The skull and scalp are intact. Paranasal sinuses and mastoid air cells are clear. Globes and orbits are intact. IMPRESSION: No acute intracranial abnormality. FOR INTERNAL CODING PURPOSES Critical result: Findings discussed with JOANNA SUERO MD at 02/24/2022 11:38AM. RESULT CODE: (C) Electronically signed by: Joanna Neal MD (02/24/2022 11:41 AM) [id number] DICTATED AND SIGNED BY: JOANNA NEAL MD DATE: 02/24/22 1140 CC: JOANNA SUERO MD; ALENA [place]ANEY ~ [place] [address] IMAGING REPORT Signed PATIENT: JUAN DANIEL THOMAS ACCOUNT: [id number] : 1935 LOCATION: ER AGE: 86 SEX: F EXAM STATUS: REG ER ORD. PHYSICIAN: JOANNA SUERO MD REASON: stroke PROCEDURE: PORTABLE CHEST 1V EXAM: XR CHEST 1V 02/24/2022 11:44 AM CLINICAL INDICATION: Stroke COMPARISON: Chest radiograph 02/23/2021 TECHNIQUE: AP view of the chest FINDINGS: The heart is normal in size. Lungs are well-expanded. No conso lidation, pleural effusion, or pneumothorax. There is a calcified granuloma in the right lung base, unchanged. IMPRESSION: No acute cardiopulmonary abnormality. Electronically signed by: Joanna Neal MD (02/24/2022 12:47 PM) [id number] DICTATED AND SIGNED BY: JOANNA NEAL MD DATE: 02/24/22 1244 CC: JOANNA SUERO MD; ALENA HANEY ~ Heart Score: C/O Chest Pain: No Risk Factors: Risk Factors: DM, Current or recent (<one month) smoker, HTN, HLP, family history of CAD, obesity. Risk Scores: Score 0 - 3: 2.5% MACE over next 6 weeks - Discharge Home Score 4 - 6: 20.3% MACE over next 6 weeks - Admit for Clinical Observation Score 7 - 10: 72.7% MACE over next 6 weeks - Early Invasive Strategies Course & Med Decision Making: Course & Med Decision Making Pertinent Labs and Imaging studies reviewed. (See chart for details) Discussed patient with Dr. Starkey, will transfer to [facility] for MRI and further neurological work-up. [] Dragon Disclaimer: Dragon Disclaimer: This electronic medical record was generated, in whole or in part, using a voice recognition dictation system. Departure Departure: Impression: Primary Impression: Stroke Disposition: 02 SHORT TERM HOSPITAL Condition: STABLE Referrals: ALENA HANEY (PCP) JOANNA SUERO MD February 24, 2022 11:25
[2022-02-24] MEDS ORDERED: IOHEXOL 350 MG/ML 100 ML VIAL. ONE (11:26)
[2022-02-24] MEDS ORDERED: CONTRAST GIVEN. MC PRN (11:30)
[2022-02-24] MEDS ORDERED: IOHEXOL 350 MG/ML 100 ML VIAL. IV ONE (11:30)
--- NOTE | 2022-02-24 11:43 | RAD ---
EXAM: CT head without contrast INDICATION: Right upper and lower extremity weakness COMPARISON: CT head 01/26/2021 TECHNIQUE: Axial CT imaging through the head without intravenous contrast. Sagittal and coronal refor mats were obtained. One or more of the following individualized dose reduction techniques were utilized for this examinat ion: 1. Automated exposure control 2. Adjustment of the mA and/or kV according to patient size 3. Use of iterative reconstruction technique. FINDINGS: The ventricles and sulci are mildly enlarged. There is mild periventricular and deep white matter hyp oattenuation. There is physiologic mineralization in the basal ganglia, unchanged. No intracranial he morrhage, acute infarct, or mass lesion. The skull and scalp are intact. Paranasal sinuses and mastoi d air cells are clear. Globes and orbits are intact. IMPRESSION: No acute intracranial abnormality. FOR INTERNAL CODING PURPOSES Critical result: Findings discussed with JOANNA SUERO MD at 02/24/2022 11:38AM. RESULT CODE: (C) Electronically signed by: Joanna Neal MD (02/24/2022 11:41 AM) [id number]
[2022-02-24 11:48] LABS: BASO % 1 % (0-3); EOS # 0.1 x10^3/uL (0.0-0.7); EOS % 1 % (0-3); HEMATOCRIT 39.3 % (36.0-47.0); HEMOGLOBIN 13.2 g/dL (12.0-15.5); LYMPH # 0.8 x10^3/uL (1.0-4.8); LYMPH % 8 % (24-48); MEAN CORPUSCULAR HEMOGLOBIN 30 pg (25-35); MEAN CORPUSCULAR HGB CONC 34 g/dL (31-37); MEAN CORPUSCULAR VOLUME 89 fL (79-100); MONO # 1.3 x10^3/uL (0.0-1.1); MONO % 14 % (0-9); NEUT # 7.1 x10^3uL (1.8-7.7); NEUT % 76 % (31-73); PLATELET COUNT 198 x10^3/uL (140-400); RED BLOOD COUNT 4.43 x10^6/uL (3.50-5.40); RED CELL DISTRIBUTION WIDTH 14.1 % (11.5-14.5); WHITE BLOOD COUNT 9.3 x10^3/uL (4.0-11.0)
--- NOTE | 2022-02-24 12:04 | EKG ---
[address] [address] Test Date: 2022-02-24 Test Time: 11:27:52 Pat Name: JUAN DANIEL THOMAS Department: Room: Gender: F [employer]ter: KERRI : 1935 Requested By: JIMMY SUERO Order Number: [id number] Reading MD: Usama Moya MD Measurements Intervals [place] Rate: 78 P: 49 VA: 168 QRS: -21 QRSD: 120 T: 87 QT: 418 QTc: 480 Interpretive Statements SINUS RHYTHM IVCD Electronically Signed On 03-01-2022 9:12:56 CDT by Usama Moya MD
--- NOTE | 2022-02-24 12:18 | RAD ---
CTA HEAD AND NECK W/WO CONTRAST History:Reason: right upper and lower weakness Technique: After administration of 75 mL Omnipaque 350 intravenous contrast, volumetric CT data acqui sition was acquired of the head and neck. Multiplanar reconstruction images to include MIP and 3-D re construction images are submitted. Exposure: One or more of the following individualized dose reduction techniques were utilized for thi s examination: 1. Automated exposure control 2. Adjustment of the mA and/or kV according to patient size 3. Use of iterative reconstruction technique. Comparison: None Any determination of stenosis is based on NASCET criteria. Head CTA: ICA: No stenosis, occlusion or aneurysm. MCA: No stenosis, occlusion or aneurysm. ANNIA: There is either a hypoplastic A1 segment of the right anterior cerebral artery or chronic appear ing severe stenosis or focal occlusion of the A1 segment of the right anterior cerebral artery with r etrograde flow from the anterior commuting artery. The A2 segment is normally opacified. The left ant erior cerebral arteries are patent and normal in caliber. [employer] SCOUT: No stenosis, occlusion or aneurysm. Basilar artery: No stenosis, occlusion or aneurysm. Distal vertebral arteries: No stenosis, occlusion or aneurysm. CT angiogram neck: Aortic arch: There is 60 percent narrowing of the brachiocephalic artery origin over a 1 cm segment d ue to atheromatous plaque. No significant narrowing of the left common carotid or subclavian arteries . Mild calcified and noncalcified atherosclerosis. Common carotid arteries: No stenosis, occlusion or dissection. Internal carotid arteries: 40 percent narrowing of the origin and proximal right ICA to to atheroscle rosis. 20 percent narrowing of the proximal left internal carotid artery due to calcifications. External carotid arteries: Patent Vertebral arteries: No stenosis, occlusion or dissection. Imaged lung apices are unremarkable. There is a 2.2 x 1.0 cm hypodense structure along the right max illa that is most likely some kind of dental implant (image 76, series 4) Bones: Mild superior compression deformities at T4, T5, and T6, likely old. IMPRESSION: 1. Hypoplastic A1 segment of the right ANNIA versus chronic appearing severe stenosis of focal occlusi on of the A1 segment of the right ANNIA with retrograde flow from the anterior communicating artery. 2. 40 percent percent narrowing at the proximal right ICA and 20 percent narrowing of the proximal le ft ICA. FOR INTERNAL CODING PURPOSES Critical result: Findings discussed with JOANNA SUERO MD at 02/24/2022 12:11 PM. RESULT CODE: (C) Electronically signed by: Joanna Neal MD (02/24/2022 12:15 PM) [id number]
[2022-02-24 12:19] LABS: ALBUMIN 3.7 g/dL (3.4-5.0); DIRECT BILIRUBIN 0.1 mg/dL (0.0-0.2); MAGNESIUM 2.1 mg/dL (1.8-2.4); PHOSPHORUS 3.5 mg/dL (2.6-4.7); TOTAL BILIRUBIN 0.6 mg/dL (0.2-1.0); TOTAL PROTEIN 6.9 g/dL (6.4-8.2)
--- NOTE | 2022-02-24 12:49 | RAD ---
EXAM: XR CHEST 1V 02/24/2022 11:44 AM CLINICAL INDICATION: Stroke COMPARISON: Chest radiograph 02/23/2021 TECHNIQUE: AP view of the chest FINDINGS: The heart is normal in size. Lungs are well-expanded. No consolidation, pleural effusion, or pneumothorax. There is a calcified granuloma in the right lung base, unchanged. IMPRESSION: No acute cardiopulmonary abnormality. Electronically signed by: Joanna Neal MD (02/24/2022 12:47 PM) [id number]
[2022-02-24 13:21] LABS: CALCIUM 9.7 mg/dL (8.5-10.1); CREATININE 1.5 mg/dL (0.6-1.0); GFR 32.9; POTASSIUM 4.4 mmol/L (3.5-5.1)
[2022-02-24] MEDS ORDERED: IV RINGERS SOLUTION,LACTATED 1,000 ML IV ONE (14:30)
[2022-02-24 14:49] LABS: BACTERIA,URINE 0 /HPF (0-FEW); CLARITY,URINE CLEAR; COLOR,URINE YELLOW; GLUCOSE,URINE NEG (NEG); NITRITE,URINE NEG (NEG); RBC,URINE 0 /HPF (0-2); UROBILINOGEN,URINE 0.2 mg/dL (0.2 mg/dL); WBC,URINE 0 /HPF (0-4)
[2022-02-24] MEDS ORDERED: ACETAMINOPHEN 325 MG TABLET PO PRN (15:15)
[2022-02-24] MEDS ORDERED: MORPHINE SULFATE 2 MG/ML DISP.SYRIN. IVP PRN (15:15)
[2022-02-24] MEDS ORDERED: ONDANSETRON PF 4 MG/2 ML VIAL. IVP PRN (15:15)
[2022-02-24 15:17] LABS: INFLUENZA A PATIENT NEGATIVE (NEGATIVE); INFLUENZA B PATIENT NEGATIVE (NEGATIVE)
[2022-02-24 18:48] VITALS: BP 185/76
== END 2022-02-24 19:42 | disposition short-term general hospital (02) ==
LOC: ER 11:10 → ER HOLD 15:04 → UNDOADMIN 15:04 → ER HOLD 15:45 → 1 SOUTH 15:45 → ER 19:42
DX: I63.9 Cerebral infarction, unspecified (principal); R53.1 Weakness; J44.9 Chronic obstructive pulmonary disease, unspecified; I10 Essential (primary) hypertension; E03.9 Hypothyroidism, unspecified; Z20.822 Contact with and (suspected) exposure to COVID-19; Z88.2 Allergy status to sulfonamides; Z88.1 Allergy status to other antibiotic agents; Z88.8 Allergy status to other drugs, medicaments and biological substances
CPT/HCPCS: 36415; 70450; 70496; 70498; 71045; 80048; 80076; 81001; 82947; 83735; 83880; 84100; 84484; 85025; 85610; 85730; 87428; 93005; 96360; 96361; 99285; C9803; J7120; Q9967; U0003